=== PATIENT | male | born 1970 | race Hispanic/Latino ===

== ENCOUNTER 2021-06-11 08:52 | Observation (INO) | payer OTHER ==
[~2021-06-11] VITALS: Ht 152.4 cm; Wt 82.1 kg
[2021-06-11 09:53] LABS: BASOPHILS % (AUTO) 0.3 % (0.0-5.0); EOSINOPHILS % (AUTO) 2.2 % (0.0-8.0); LYMPHOCYTES % (AUTO) 20.3 % (21.0-51.0); MEAN CORPUSCULAR HEMOGLOBIN 27.8 pg (27.0-33.0); MEAN CORPUSCULAR HGB CONC 32.6 g/dL (32.0-36.0); MEAN CORPUSCULAR VOLUME 85.4 fL (79-99); MONOCYTES % (AUTO) 5.2 % (3.0-13.0); NEUTROPHILS % (AUTO) 71.7 % (40.0-77.0); PLATELET COUNT (AUTO) 249 K/uL (130-400); RED BLOOD CELL COUNT(AUTO) 3.63 MIL/uL (4.50-6.20); RED CELL DISTRIBUTION WIDTH 13.4 % (11.0-15.5); WHITE BLOOD COUNT (AUTO) 6.9 K/uL (4.8-10.8)
[2021-06-11 10:17] LABS: ALBUMIN 2.1 g/dL (3.5-5.0); BILIRUBIN,TOTAL 0.2 mg/dL (0.2-1.0); CREATININE 4.1 mg/dL (0.5-1.5); MAGNESIUM 1.9 mg/dL (1.80-2.40); POTASSIUM 3.8 mmol/L (3.5-5.1)
[2021-06-11 10:18] LABS: APPEARANCE,URINE Cloudy (CLEAR); BILIRUBIN,URINE Negative (NEGATIVE); COLOR,URINE Yellow (YELLOW); GLUCOSE, URINE (UA) 250 mg/dL (NEGATIVE); KETONES,URINE Negative (NEGATIVE); LEUKOCYTE ESTERASE ,URINE Negative (NEGATIVE); NITRATE,URINE Negative (NEGATIVE); OCCULT BLOOD,URINE Small (NEGATIVE); PROTEIN,URINE >=1000 mg/dL (NEGATIVE); UROBILINOGEN,URINE 0.2 mg/dL (0.2-1.0)
[2021-06-11 10:26] LABS: BACTERIA,URINE Rare /HPF (None Seen); RBC,URINE 0-1 /HPF (0-1); SQUAMOUS EPITHELIAL CELL,UR Rare /HPF (0-2)
[2021-06-11 10:37] LABS: AMPHET/METH SCREEN,URINE NEGATIVE (NEGATIVE); B-TYPE NATRIURETIC PEPTIDE 866 pg/mL (0-100); BARBITURATE SCREEN, URINE NEGATIVE (NEGATIVE); BENZODIAZEPINES SCREEN,URINE NEGATIVE (NEGATIVE); CANNABINOID SCREEN,URINE NEGATIVE (NEGATIVE); COCAINE SCREEN,URINE NEGATIVE (NEGATIVE); OPIATE SCREEN,URINE NEGATIVE (NEGATIVE); PHENCYCLIDINE SCREEN,URINE NEGATIVE (NEGATIVE)
[2021-06-11] MEDS ORDERED: FUROSEMIDE 40MG VIAL IV SCH (11:00)
[2021-06-11] MEDS ORDERED: FUROSEMIDE 40MG VIAL ONE (11:26)
[2021-06-11] MEDS: NIFEDIPINE 10 MG CAP PO SCH ×2 (13:49→20:25)
[2021-06-11 16:28] LABS: RETICULOCYTE % (AUTO) 1.33 % (0.42-2.23)
[2021-06-11] MEDS ORDERED: LABETALOL HCL 200 MG TABLET PO SCH (16:30)
[2021-06-11] MEDS ORDERED: BUMETANIDE 2.5MG/10ML VIAL 80 ML IV SCH (16:30)
[2021-06-11] MEDS ORDERED: BUMETANIDE 2.5MG/10ML VIAL 40 ML IV SCH (16:30)
[2021-06-11 16:58] LABS: % IRON SATURATION 16.6 % (30-44)
[2021-06-11] MEDS: LABETALOL HCL 200 MG TABLET PO SCH (20:25)
[2021-06-11] MEDS ORDERED: FAMOTIDINE 20MG TAB PO SCH (21:00)
[2021-06-11] MEDS ORDERED: LINA5TAB PO (22:29)
[2021-06-11] MEDS ORDERED: METO-408 PO (22:29)
[2021-06-11] MEDS ORDERED: TAMS-1 PO (22:29)
[2021-06-11 22:50] VITALS: BP 152/84
[2021-06-11] MEDS ORDERED: BUMETANIDE 1MG/4ML VIAL ONE (22:53)
[2021-06-11] MEDS ORDERED: HYDROMORPHONE 0.5 MG SYG (0.5MG/0.5ML) IVP ONE (23:00)
[2021-06-11] MEDS ORDERED: ACETAMINOPHEN 325 MG TAB ONE (23:10)
[2021-06-12] MEDS ORDERED: ACETAMINOPHEN 325 MG TAB PO PRN (00:30)
[2021-06-12 03:57] LABS: HEMATOCRIT 27.6 % (42-54); MEAN CORPUSCULAR HGB CONC 32.2 g/dL (32.0-36.0); MEAN CORPUSCULAR VOLUME 83.6 fL (79-99); RED BLOOD CELL COUNT(AUTO) 3.3 MIL/uL (4.50-6.20); RED CELL DISTRIBUTION WIDTH 13.5 % (11.0-15.5); WHITE BLOOD COUNT (AUTO) 6.6 K/uL (4.8-10.8)
[2021-06-12 04:18] VITALS: BP 151/81
[2021-06-12 04:32] LABS: ALBUMIN 1.8 g/dL (3.5-5.0); CREATININE 4.7 mg/dL (0.5-1.5); PHOSPHORUS 4.9 mg/dL (2.5-4.9); POTASSIUM 3.5 mmol/L (3.5-5.1)
[2021-06-12 07:30] VITALS: BP 140/71
[2021-06-12] MEDS ORDERED: ENOXAPARIN SODIUM 30 MG/0.3 ML SQ SCH (09:00)
[2021-06-12] MEDS ORDERED: NIFEDIPINE ER 30 MG TAB PO SCH (09:30)
[2021-06-12] MEDS: LABETALOL HCL 200 MG TABLET PO SCH (09:38)
[2021-06-12] MEDS ORDERED: LABE200T5 PO (09:40)
[2021-06-12] MEDS ORDERED: Folic Acid/Vitamin B Comp W-C PO (09:40)
[2021-06-12] MEDS ORDERED: NIFE-39 PO (09:40)
[2021-06-12] MEDS ORDERED: TAMS-1 PO (09:40)
[2021-06-12] MEDS ORDERED: IRON SUCROSE COMPLEX 400 MG in 0.9% NACL 250ML 250 ML IV SCH (10:00)
[2021-06-12] MEDS ORDERED: EPOETIN ALFA-EPBX (NON-ESRD) 10,000 UNIT/ML VIAL SQ SCH (10:00)
[2021-06-12] MEDS ORDERED: Vitamin B Complex/Vit C/Folic Acid PO SCH (10:00)
[2021-06-12] MEDS ORDERED: TAMSULOSIN HCL 0.4 MG CAP.ER.24H PO SCH (10:00)
[2021-06-12 11:35] VITALS: BP 143/85
[2021-06-12 15:25] VITALS: BP 94/60
[2021-06-12 15:32] VITALS: BP 125/66
[2021-06-13] MEDS ORDERED: NIFEDIPINE ER 30 MG TAB PO SCH (09:00)
[2021-06-13] MEDS ORDERED: Vitamin B Complex/Vit C/Folic Acid PO SCH (09:00)
[2021-06-13] MEDS ORDERED: TAMSULOSIN HCL 0.4 MG CAP.ER.24H PO SCH (21:00)
== END 2021-06-12 17:55 | disposition home or self-care (01) ==
LOC: EDH 08:52 → EDHIP 16:01 → 4AH 21:22
PROVIDERS: ADMIT Internal Medicine; ATTEND Internal Medicine
DX: E87.70 Fluid overload, unspecified (principal); I16.0 Hypertensive urgency; I13.2 Hypertensive heart and chronic kidney disease with heart failure and with stage 5 chronic kidney disease, or end stage renal disease; I50.31 Acute diastolic (congestive) heart failure; N18.6 End stage renal disease; E11.22 Type 2 diabetes mellitus with diabetic chronic kidney disease; D63.1 Anemia in chronic kidney disease; E11.319 Type 2 diabetes mellitus with unspecified diabetic retinopathy without macular edema; R06.09 Other forms of dyspnea; N17.9 Acute kidney failure, unspecified; K59.00 Constipation, unspecified; E43 Unspecified severe protein-calorie malnutrition; Z79.899 Other long term (current) drug therapy; Z98.890 Other specified postprocedural states
CPT/HCPCS: 36415 ×2; 71045; 80053; 80069; 80305; 81001; 82607; 82728; 82746; 82948 ×3; 83540; 83550; 83735; 83880 ×2; 84484; 85025; 85027; 85045; 93005; 96365; 96366 ×2; 96367; 96372; 96375; 99291; G0378 ×26; J1650; J1756; J1940; J3490 ×2; J7050; Q5106

== ENCOUNTER 2021-08-06 09:36 | Observation (INO) | payer OTHER ==
[~2021-08-06] VITALS: Ht 157.5 cm; Wt 80.9 kg
[~2021-08-06 09:36] MED LIST: Folic Acid/Vitamin B Comp W-C PO; LABE200T5 PO; NIFE-39 PO; TAMS-1 PO
[2021-08-06 10:11] LABS: BASOPHILS % (AUTO) 0.1 % (0.0-5.0); EOSINOPHILS % (AUTO) 3.3 % (0.0-8.0); HEMATOCRIT 28.9 % (42-54); LYMPHOCYTES % (AUTO) 18.6 % (21.0-51.0); MEAN CORPUSCULAR HEMOGLOBIN 27.6 pg (27.0-33.0); MEAN CORPUSCULAR HGB CONC 33.2 g/dL (32.0-36.0); MONOCYTES % (AUTO) 5.1 % (3.0-13.0); NEUTROPHILS % (AUTO) 72.6 % (40.0-77.0); PLATELET COUNT (AUTO) 263 K/uL (130-400); RED BLOOD CELL COUNT(AUTO) 3.48 MIL/uL (4.50-6.20); WHITE BLOOD COUNT (AUTO) 7.5 K/uL (4.8-10.8)
[2021-08-06 10:21] LABS: CREATININE 5.7 mg/dL (0.5-1.5); POTASSIUM 4.3 mmol/L (3.5-5.1)
[2021-08-06 10:29] LABS: BILIRUBIN,TOTAL 0.3 mg/dL (0.2-1.0); TOTAL PROTEIN, SERUM 7.1 g/dL (6.0-8.3)
[2021-08-06 10:47] LABS: APPEARANCE,URINE Clear (CLEAR); BILIRUBIN,URINE Negative (NEGATIVE); COLOR,URINE Yellow (YELLOW); GLUCOSE, URINE (UA) TRACE mg/dL (NEGATIVE); KETONES,URINE Negative (NEGATIVE); LEUKOCYTE ESTERASE ,URINE Negative (NEGATIVE); NITRATE,URINE Negative (NEGATIVE); OCCULT BLOOD,URINE Trace (NEGATIVE); PROTEIN,URINE >=1000 mg/dL (NEGATIVE); UROBILINOGEN,URINE 0.2 mg/dL (0.2-1.0)
[2021-08-06 10:58] LABS: BACTERIA,URINE Rare /HPF (None Seen); RBC,URINE 0-1 /HPF (0-1); SQUAMOUS EPITHELIAL CELL,UR Rare /HPF (0-2)
[2021-08-06] MEDS ORDERED: FUROSEMIDE 40MG VIAL IV ONE (11:00)
[2021-08-06] MEDS ORDERED: ACETAMINOPHEN 500 MG TABLET ONE (12:13)
[2021-08-06] MEDS ORDERED: ACETAMINOPHEN 500 MG TABLET PO SCH (12:30)
[2021-08-06] MEDS ORDERED: NIFE90TA65 PO (16:02)
[2021-08-06] MEDS ORDERED: METO2.5T2 PO (16:02)
[2021-08-06] MEDS ORDERED: BUME1TAB6 PO (16:02)
[2021-08-06] MEDS: LABETALOL HCL 200 MG TABLET PO SCH ×2 (16:30→21:36)
[2021-08-06] MEDS: NIFEDIPINE ER 30 MG TAB PO SCH (16:30)
[2021-08-06] MEDS: FUROSEMIDE 20MG VIAL IV SCH (17:21)
[2021-08-06] MEDS: HEPARIN 5,000 UNIT VIAL SQ SCH (17:21)
[2021-08-06 17:50] VITALS: BP 106/61
[2021-08-06 20:02] VITALS: BP 134/101
[2021-08-07 00:16] VITALS: BP 125/60
[2021-08-07 04:08] VITALS: BP 133/76
[2021-08-07 04:48] LABS: BASOPHILS % (AUTO) 0.2 % (0.0-5.0); EOSINOPHILS % (AUTO) 3.5 % (0.0-8.0); HEMATOCRIT 26.2 % (42-54); LYMPHOCYTES % (AUTO) 23.2 % (21.0-51.0); MEAN CORPUSCULAR HEMOGLOBIN 26.8 pg (27.0-33.0); MEAN CORPUSCULAR HGB CONC 32.1 g/dL (32.0-36.0); MEAN CORPUSCULAR VOLUME 83.4 fL (79-99); MONOCYTES % (AUTO) 6.8 % (3.0-13.0); NEUTROPHILS % (AUTO) 65.8 % (40.0-77.0); PLATELET COUNT (AUTO) 235 K/uL (130-400); RED BLOOD CELL COUNT(AUTO) 3.14 MIL/uL (4.50-6.20); RED CELL DISTRIBUTION WIDTH 13.2 % (11.0-15.5); WHITE BLOOD COUNT (AUTO) 6.3 K/uL (4.8-10.8)
[2021-08-07] MEDS: FUROSEMIDE 20MG VIAL IV SCH (04:58)
[2021-08-07] MEDS: HEPARIN 5,000 UNIT VIAL SQ SCH (05:10)
[2021-08-07 05:12] LABS: ALBUMIN 2.7 g/dL (3.5-5.0); BILIRUBIN,TOTAL 0.2 mg/dL (0.2-1.0); MAGNESIUM 3.7 mg/dL (1.80-2.40); PHOSPHORUS 5.9 mg/dL (2.5-4.9); POTASSIUM 4.6 mmol/L (3.5-5.1); TOTAL PROTEIN, SERUM 6.3 g/dL (6.0-8.3)
[2021-08-07 05:26] LABS: B-TYPE NATRIURETIC PEPTIDE 110 pg/mL (0-100)
[2021-08-07 07:30] VITALS: BP 145/79
[2021-08-07] MEDS: NIFEDIPINE ER 30 MG TAB PO SCH (07:50)
[2021-08-07] MEDS ORDERED: METOLAZONE 2.5 MG TABLET PO SCH (09:00)
[2021-08-07] MEDS ORDERED: TAMSULOSIN HCL 0.4 MG CAP.ER.24H PO SCH (09:00)
[2021-08-07] MEDS ORDERED: PANTOPRAZOLE 40 MG/VIAL IVP SCH (09:00)
[2021-08-07] MEDS ORDERED: Vitamin B Complex/Vit C/Folic Acid PO SCH (09:00)
[2021-08-07] MEDS ORDERED: BUMETANIDE 1 MG TAB PO SCH (09:00)
[2021-08-07 11:00] VITALS: BP 158/89
[2021-08-07] MEDS: LABETALOL HCL 200 MG TABLET PO SCH (11:49)
[2021-08-07 16:00] VITALS: BP 138/77
== END 2021-08-07 16:45 | disposition home or self-care (01) ==
LOC: EDH 09:36 → UNDOADMOB 15:50 → 3CH 15:50 → EDHIP 15:50
PROVIDERS: ADMIT Internal Medicine; ATTEND Internal Medicine
DX: E87.70 Fluid overload, unspecified (principal); I13.2 Hypertensive heart and chronic kidney disease with heart failure and with stage 5 chronic kidney disease, or end stage renal disease; I50.9 Heart failure, unspecified; N18.5 Chronic kidney disease, stage 5; D63.1 Anemia in chronic kidney disease; E11.22 Type 2 diabetes mellitus with diabetic chronic kidney disease; D72.810 Lymphocytopenia; E83.51 Hypocalcemia; H54.7 Unspecified visual loss; N17.9 Acute kidney failure, unspecified; N40.0 Benign prostatic hyperplasia without lower urinary tract symptoms; R60.1 Generalized edema; E88.09 Other disorders of plasma-protein metabolism, not elsewhere classified; Z79.899 Other long term (current) drug therapy; Z98.890 Other specified postprocedural states
CPT/HCPCS: 36415 ×2; 71045 ×2; 80053 ×2; 81001; 82948; 83735; 83880 ×2; 84100; 84484; 85025 ×2; 93005; 96372 ×2; 96374; 96375; 96376 ×2; 99285; C9113; G0378 ×25; J1644 ×2; J1940 ×3

== ENCOUNTER → 2021-09-03 | Outpatient (CLI) | payer OTHER ==
[~2021-09-03] MED LIST changes: +BUME1TAB6 PO; -Folic Acid/Vitamin B Comp W-C PO; -LABE200T5 PO; +METO2.5T2 PO; -NIFE-39 PO; +NIFE90TA65 PO; -TAMS-1 PO
== END | disposition home or self-care (01) ==
LOC: RAH 13:14
PROVIDERS: ATTEND Student in an Organized Health Care Education/Training Program
DX: N18.6 End stage renal disease (principal)
CPT/HCPCS: 93970

== ENCOUNTER → 2021-09-25 | Outpatient (CLI) | payer OTHER | END | disposition home or self-care (01) | LOC: SHCH 12:18 | PROVIDERS: ATTEND Internal Medicine Cardiovascular Disease | DX: I31.3 Pericardial effusion (noninflammatory) (principal); I35.8 Other nonrheumatic aortic valve disorders; I13.11 Hypertensive heart and chronic kidney disease without heart failure, with stage 5 chronic kidney disease, or end stage renal disease; E11.22 Type 2 diabetes mellitus with diabetic chronic kidney disease; N18.6 End stage renal disease | CPT/HCPCS: 93306 ==

== ENCOUNTER → 2021-09-28 | Outpatient (CLI) | payer OTHER ==
[~2021-09-28] MED LIST changes: +FERS325 PO; +ISOS30TA92 PO; +REGADENOSON 0.4 MG/5 ML PF SYG IVP SCH; +TAMS-1 PO
== END | disposition home or self-care (01) ==
LOC: SHCH 08:31
PROVIDERS: ATTEND Internal Medicine Cardiovascular Disease
DX: I20.9 Angina pectoris, unspecified (principal); R06.09 Other forms of dyspnea; I10 Essential (primary) hypertension; E78.5 Hyperlipidemia, unspecified
CPT/HCPCS: 78452; 96374; 93017; J2785; A9500 ×2

== ENCOUNTER 2021-10-05 16:53 | Inpatient (IN) | payer OTHER ==
[~2021-10-05] VITALS: Ht 152.4 cm; Wt 72.3 kg
[~2021-10-05 16:53] MED LIST changes: -FERS325 PO; -ISOS30TA92 PO; -REGADENOSON 0.4 MG/5 ML PF SYG IVP SCH; -TAMS-1 PO
[2021-10-05 17:20] LABS: BASOPHILS % (AUTO) 0.2 % (0.0-5.0); EOSINOPHILS % (AUTO) 2.4 % (0.0-8.0); HEMATOCRIT 23.1 % (42-54); LYMPHOCYTES % (AUTO) 16.1 % (21.0-51.0); MEAN CORPUSCULAR HEMOGLOBIN 28.5 pg (27.0-33.0); MEAN CORPUSCULAR HGB CONC 35.1 g/dL (32.0-36.0); MEAN CORPUSCULAR VOLUME 81.3 fL (79-99); MONOCYTES % (AUTO) 6.9 % (3.0-13.0); PLATELET COUNT (AUTO) 270 K/uL (130-400); RED BLOOD CELL COUNT(AUTO) 2.84 MIL/uL (4.50-6.20); RED CELL DISTRIBUTION WIDTH 13.4 % (11.0-15.5); WHITE BLOOD COUNT (AUTO) 9.8 K/uL (4.8-10.8)
[2021-10-05 17:30] LABS: CREATININE 7.7 mg/dL (0.5-1.5); POTASSIUM 3.8 mmol/L (3.5-5.1)
[2021-10-05 17:35] LABS: ALBUMIN 3.4 g/dL (3.5-5.0); TOTAL PROTEIN, SERUM 7.7 g/dL (6.0-8.3)
[2021-10-05] MEDS ORDERED: MORPHINE 4 MG SYG IVP ONE (18:00)
[2021-10-05] MEDS ORDERED: ONDANSETRON 4MG INJ IVP ONE (18:00)
[2021-10-05 19:22] LABS: APPEARANCE,URINE Cloudy (CLEAR); BILIRUBIN,URINE Negative (NEGATIVE); COLOR,URINE Yellow (YELLOW); GLUCOSE, URINE (UA) Negative (NEGATIVE); KETONES,URINE Negative (NEGATIVE); LEUKOCYTE ESTERASE ,URINE Trace (NEGATIVE); NITRATE,URINE Negative (NEGATIVE); OCCULT BLOOD,URINE Negative (NEGATIVE); PROTEIN,URINE 300 mg/dL (NEGATIVE); UROBILINOGEN,URINE 0.2 mg/dL (0.2-1.0)
[2021-10-05 19:29] LABS: BACTERIA,URINE Few /HPF (None Seen); RBC,URINE 0-1 /HPF (0-1)
[2021-10-05 19:30] LABS: SQUAMOUS EPITHELIAL CELL,UR Rare /HPF (0-2)
[2021-10-05] MEDS ORDERED: METRONIDAZOLE 500 MG TABLET PO SCH (20:00)
[2021-10-05] MEDS ORDERED: LACTULOSE 20 GM/30 ML UDCUP PO PRN (20:30)
[2021-10-05] MEDS ORDERED: DOCUSATE SODIUM 100 MG CAP PO PRN (20:30)
[2021-10-05] MEDS ORDERED: PHARMACY COMMUNICATION MISC SCH (20:30)
[2021-10-05] MEDS ORDERED: MORPHINE 2 MG SYG IVP PRN (20:30)
[2021-10-05] MEDS ORDERED: CLONIDINE HCL 0.1 MG TABLET PO PRN (20:30)
[2021-10-05] MEDS ORDERED: ACETAMINOPHEN 650 MG SUPPOSITORY RC PRN (20:30)
[2021-10-05] MEDS ORDERED: TEMAZEPAM 15 MG CAPSULE PO PRN (20:30)
[2021-10-05] MEDS ORDERED: LABETALOL 20MG SYG IV PRN (20:30)
[2021-10-05] MEDS ORDERED: HYDRALAZINE 20MG/ML VIAL IV PRN (20:30)
[2021-10-05] MEDS ORDERED: ONDANSETRON 4MG INJ IVP PRN (20:30)
[2021-10-05 22:31] VITALS: BP 151/83
[2021-10-06] MEDS: ACETAMINOPHEN 325 MG TAB PO PRN ×2 (00:54→22:56)
[2021-10-06] MEDS ORDERED: FERS325 PO (03:10)
[2021-10-06] MEDS ORDERED: TAMS-1 PO (03:10)
[2021-10-06] MEDS ORDERED: ISOS30TA92 PO (03:10)
[2021-10-06] MEDS ORDERED: LEVETIRACETAM 500 MG TABLET PO ONE (03:40)
[2021-10-06 04:16] VITALS: BP 146/83
[2021-10-06 04:48] LABS: BASOPHILS % (AUTO) 0.3 % (0.0-5.0); EOSINOPHILS % (AUTO) 2.9 % (0.0-8.0); HEMATOCRIT 22.4 % (42-54); MEAN CORPUSCULAR HEMOGLOBIN 27.8 pg (27.0-33.0); MEAN CORPUSCULAR HGB CONC 33.9 g/dL (32.0-36.0); MEAN CORPUSCULAR VOLUME 82.1 fL (79-99); MONOCYTES % (AUTO) 6.8 % (3.0-13.0); NEUTROPHILS % (AUTO) 73.6 % (40.0-77.0); PLATELET COUNT (AUTO) 242 K/uL (130-400); RED BLOOD CELL COUNT(AUTO) 2.73 MIL/uL (4.50-6.20); RED CELL DISTRIBUTION WIDTH 13.4 % (11.0-15.5); WHITE BLOOD COUNT (AUTO) 7.2 K/uL (4.8-10.8)
[2021-10-06 05:11] LABS: CREATININE 7.2 mg/dL (0.5-1.5); POTASSIUM 4.1 mmol/L (3.5-5.1)
[2021-10-06 08:00] VITALS: BP 163/86
[2021-10-06] MEDS: METOLAZONE 2.5 MG TABLET PO SCH (08:38)
[2021-10-06] MEDS: FERROUS SULFATE 325 MG TABLET.DR PO SCH (08:38)
[2021-10-06] MEDS: BUMETANIDE 1 MG TAB PO SCH (08:38)
[2021-10-06] MEDS: TAMSULOSIN HCL 0.4 MG CAP.ER.24H PO SCH (08:39)
[2021-10-06] MEDS: NIFEDIPINE ER 30 MG TAB PO SCH (08:39)
[2021-10-06] MEDS: ISOSORBIDE MONO 30MG SR TAB PO SCH (08:40)
[2021-10-06] MEDS: LEVOFLOXACIN 500 MG TABLET PO SCH (08:40)
[2021-10-06 12:00] VITALS: BP 163/87
[2021-10-06] MEDS: TRAMADOL HCL 50 MG TABLET PO PRN (15:53)
[2021-10-06 16:00] VITALS: BP 145/73
[2021-10-06 20:17] VITALS: BP 120/66
[2021-10-06 23:32] VITALS: BP 137/70
[2021-10-07] MEDS: LEVOFLOXACIN 500 MG TABLET PO SCH ×2 (01:31→21:34)
[2021-10-07 04:20] VITALS: BP 131/72
[2021-10-07 05:28] LABS: BASOPHILS % (AUTO) 0.3 % (0.0-5.0); EOSINOPHILS % (AUTO) 3.2 % (0.0-8.0); HEMATOCRIT 22.9 % (42-54); LYMPHOCYTES % (AUTO) 22.2 % (21.0-51.0); MEAN CORPUSCULAR HEMOGLOBIN 27.9 pg (27.0-33.0); MEAN CORPUSCULAR HGB CONC 34.1 g/dL (32.0-36.0); MEAN CORPUSCULAR VOLUME 81.8 fL (79-99); MONOCYTES % (AUTO) 5.6 % (3.0-13.0); NEUTROPHILS % (AUTO) 68.4 % (40.0-77.0); PLATELET COUNT (AUTO) 271 K/uL (130-400); RED CELL DISTRIBUTION WIDTH 13.2 % (11.0-15.5); WHITE BLOOD COUNT (AUTO) 6.2 K/uL (4.8-10.8)
[2021-10-07 05:43] LABS: ALBUMIN 3.1 g/dL (3.5-5.0); CREATININE 7.2 mg/dL (0.5-1.5); TOTAL PROTEIN, SERUM 7.3 g/dL (6.0-8.3)
[2021-10-07 07:57] VITALS: BP 152/78
[2021-10-07] MEDS: METOLAZONE 2.5 MG TABLET PO SCH (08:26)
[2021-10-07] MEDS: FERROUS SULFATE 325 MG TABLET.DR PO SCH (08:26)
[2021-10-07] MEDS: BUMETANIDE 1 MG TAB PO SCH (08:26)
[2021-10-07] MEDS: TAMSULOSIN HCL 0.4 MG CAP.ER.24H PO SCH (08:26)
[2021-10-07] MEDS: NIFEDIPINE ER 30 MG TAB PO SCH (08:26)
[2021-10-07] MEDS: ISOSORBIDE MONO 30MG SR TAB PO SCH (08:27)
[2021-10-07 11:00] VITALS: BP 155/82
[2021-10-07] MEDS: TRAMADOL HCL 50 MG TABLET PO PRN (13:23)
[2021-10-07 16:00] VITALS: BP 151/81
[2021-10-07 20:05] VITALS: BP 135/74
[2021-10-07 23:35] VITALS: BP 133/75
[2021-10-08] VITALS (11 sets, daily range): BP systolic 119–146; BP diastolic 62–82
[2021-10-08 05:00] LABS: EOSINOPHILS % (AUTO) 3.8 % (0.0-8.0); LYMPHOCYTES % (AUTO) 19.4 % (21.0-51.0); MEAN CORPUSCULAR HGB CONC 34.1 g/dL (32.0-36.0); MEAN CORPUSCULAR VOLUME 82.1 fL (79-99); MONOCYTES % (AUTO) 6.3 % (3.0-13.0); NEUTROPHILS % (AUTO) 70.1 % (40.0-77.0); PLATELET COUNT (AUTO) 251 K/uL (130-400); RED BLOOD CELL COUNT(AUTO) 2.68 MIL/uL (4.50-6.20); RED CELL DISTRIBUTION WIDTH 13.1 % (11.0-15.5)
[2021-10-08 05:10] LABS: INR 1.06 (0.85-1.15); PROTHROMBIN TIME 11.5 SEC (9.6-11.6)
[2021-10-08 05:21] LABS: ALBUMIN 2.9 g/dL (3.5-5.0); CREATININE 7.4 mg/dL (0.5-1.5); POTASSIUM 4.3 mmol/L (3.5-5.1)
[2021-10-08] MEDS: BUMETANIDE 1 MG TAB PO SCH (09:00)
[2021-10-08] MEDS: TAMSULOSIN HCL 0.4 MG CAP.ER.24H PO SCH (09:00)
[2021-10-08] MEDS: ISOSORBIDE MONO 30MG SR TAB PO SCH (09:00)
[2021-10-08] MEDS: POLYETHYLENE GLYCOL 3350 17 GM POWD.PACK PO SCH (09:00)
[2021-10-08] MEDS: FERROUS SULFATE 325 MG TABLET.DR PO SCH (09:00)
[2021-10-08] MEDS: METOLAZONE 2.5 MG TABLET PO SCH (09:00)
[2021-10-08] MEDS: NIFEDIPINE ER 30 MG TAB PO SCH (09:50)
[2021-10-08 12:24] LABS: ALBUMIN 3.1 g/dL (3.5-5.0)
[2021-10-08 13:21] LABS: % IRON SATURATION 25.9 % (30-44)
[2021-10-08] MEDS ORDERED: LIDOCAINE HCL 1% MDV 50ML VIAL ONE (14:56)
[2021-10-08] MEDS ORDERED: HEPARIN 1,000 UNIT VIAL ONE (14:56)
[2021-10-08 20:50] LABS: HEPATITIS B SURFACE ANTIGEN Non-Reactive (Nonreactive)
[2021-10-08] MEDS: TRAMADOL HCL 50 MG TABLET PO PRN (21:47)
[2021-10-09] VITALS (15 sets, daily range): BP systolic 123–159; BP diastolic 65–93
[2021-10-09] MEDS: LEVOFLOXACIN 500 MG TABLET PO SCH (01:23)
[2021-10-09 04:55] LABS: BASOPHILS % (AUTO) 0.2 % (0.0-5.0); EOSINOPHILS % (AUTO) 3.6 % (0.0-8.0); LYMPHOCYTES % (AUTO) 17.6 % (21.0-51.0); MEAN CORPUSCULAR HEMOGLOBIN 27.6 pg (27.0-33.0); MEAN CORPUSCULAR HGB CONC 33.5 g/dL (32.0-36.0); MEAN CORPUSCULAR VOLUME 82.4 fL (79-99); NEUTROPHILS % (AUTO) 72.3 % (40.0-77.0); PLATELET COUNT (AUTO) 256 K/uL (130-400); RED BLOOD CELL COUNT(AUTO) 2.79 MIL/uL (4.50-6.20); RED CELL DISTRIBUTION WIDTH 13.2 % (11.0-15.5); WHITE BLOOD COUNT (AUTO) 6.1 K/uL (4.8-10.8)
[2021-10-09 05:20] LABS: ALBUMIN 2.9 g/dL (3.5-5.0); CREATININE 7.6 mg/dL (0.5-1.5); POTASSIUM 4.2 mmol/L (3.5-5.1); TOTAL PROTEIN, SERUM 6.8 g/dL (6.0-8.3)
[2021-10-09] MEDS: NIFEDIPINE ER 30 MG TAB PO SCH (08:27)
[2021-10-09] MEDS: POLYETHYLENE GLYCOL 3350 17 GM POWD.PACK PO SCH (08:27)
[2021-10-09] MEDS: BUMETANIDE 1 MG TAB PO SCH (08:28)
[2021-10-09] MEDS: METOLAZONE 2.5 MG TABLET PO SCH (08:28)
[2021-10-09] MEDS: FERROUS SULFATE 325 MG TABLET.DR PO SCH (08:28)
[2021-10-09] MEDS: TAMSULOSIN HCL 0.4 MG CAP.ER.24H PO SCH (08:28)
[2021-10-09] MEDS: ISOSORBIDE MONO 30MG SR TAB PO SCH (08:29)
[2021-10-09] MEDS: HEPARIN 5,000 UNIT VIAL IRRIG PRN (13:15)
[2021-10-09] MEDS: ACETAMINOPHEN 325 MG TAB PO PRN (17:38)
[2021-10-10] VITALS (17 sets, daily range): BP systolic 115–160; BP diastolic 73–90
[2021-10-10] MEDS: LEVOFLOXACIN 500 MG TABLET PO SCH (01:03)
[2021-10-10 05:09] LABS: HEMATOCRIT 22.7 % (42-54); MEAN CORPUSCULAR HEMOGLOBIN 27.6 pg (27.0-33.0); MEAN CORPUSCULAR HGB CONC 33.9 g/dL (32.0-36.0); MEAN CORPUSCULAR VOLUME 81.4 fL (79-99); RED BLOOD CELL COUNT(AUTO) 2.79 MIL/uL (4.50-6.20)
[2021-10-10 05:27] LABS: CREATININE 6.5 mg/dL (0.5-1.5); POTASSIUM 4.2 mmol/L (3.5-5.1)
[2021-10-10] MEDS: ISOSORBIDE MONO 30MG SR TAB PO SCH (09:05)
[2021-10-10] MEDS: METOLAZONE 2.5 MG TABLET PO SCH (09:05)
[2021-10-10] MEDS: POLYETHYLENE GLYCOL 3350 17 GM POWD.PACK PO SCH (09:05)
[2021-10-10] MEDS: NIFEDIPINE ER 30 MG TAB PO SCH (09:05)
[2021-10-10] MEDS: BUMETANIDE 1 MG TAB PO SCH (09:05)
[2021-10-10] MEDS: TAMSULOSIN HCL 0.4 MG CAP.ER.24H PO SCH (09:06)
[2021-10-10] MEDS: FERROUS SULFATE 325 MG TABLET.DR PO SCH (09:06)
[2021-10-10] MEDS: HEPARIN 5,000 UNIT VIAL IRRIG PRN (18:04)
[2021-10-11] VITALS (40 sets, daily range): BP systolic 96–154; BP diastolic 53–91
[2021-10-11] MEDS: LEVOFLOXACIN 500 MG TABLET PO SCH (01:53)
[2021-10-11 05:10] LABS: HEMATOCRIT 23.7 % (42-54); MEAN CORPUSCULAR HEMOGLOBIN 28.2 pg (27.0-33.0); MEAN CORPUSCULAR HGB CONC 34.6 g/dL (32.0-36.0); MEAN CORPUSCULAR VOLUME 81.4 fL (79-99); RED BLOOD CELL COUNT(AUTO) 2.91 MIL/uL (4.50-6.20); WHITE BLOOD COUNT (AUTO) 5.8 K/uL (4.8-10.8)
[2021-10-11 05:16] LABS: POTASSIUM 3.5 mmol/L (3.5-5.1)
[2021-10-11 05:25] LABS: INR 1.1 (0.85-1.15); PROTHROMBIN TIME 11.9 SEC (9.6-11.6)
[2021-10-11] MEDS: FERROUS SULFATE 325 MG TABLET.DR PO SCH (08:50)
[2021-10-11] MEDS: METOLAZONE 2.5 MG TABLET PO SCH (08:50)
[2021-10-11] MEDS: NIFEDIPINE ER 30 MG TAB PO SCH (08:50)
[2021-10-11] MEDS: TAMSULOSIN HCL 0.4 MG CAP.ER.24H PO SCH (08:50)
[2021-10-11] MEDS: ISOSORBIDE MONO 30MG SR TAB PO SCH (08:50)
[2021-10-11] MEDS: POLYETHYLENE GLYCOL 3350 17 GM POWD.PACK PO SCH (08:51)
[2021-10-11] MEDS: HEPARIN 5,000 UNIT VIAL IRRIG PRN (11:37)
[2021-10-11] MEDS ORDERED: PROPOFOL 10 MG/ML 20ML VIAL IV ONE (14:20)
[2021-10-11] MEDS ORDERED: GLYCOPYRROLATE 1 MG/5 ML SYRINGE ONE (14:20)
[2021-10-11] MEDS ORDERED: ROCURONIUM 10MG/1ML SYR 10 MG/ML ML ONE (14:20)
[2021-10-11] MEDS ORDERED: FENTANYL CITRATE PF 50 MCG/1 ML 2ML VIAL ONE (14:21)
[2021-10-11 14:30] LABS: CREATININE 2.9 mg/dL (0.5-1.5); POTASSIUM 3.2 mmol/L (3.5-5.1)
[2021-10-11] MEDS ORDERED: 0.9% NACL 500ML IV.SOLN 500 ML IV ONE (14:32)
[2021-10-11 14:35] LABS: ALBUMIN 3.5 g/dL (3.5-5.0); TOTAL PROTEIN, SERUM 7.9 g/dL (6.0-8.3)
[2021-10-11] MEDS ORDERED: EPHEDRINE SULFATE 50 MG/ML AMPULE ONE (14:48)
[2021-10-11] MEDS ORDERED: LIDOCAINE HCL 400MG/20ML VIAL ONE (14:53)
[2021-10-11] MEDS ORDERED: ROPIVACAINE 0.5% 5MG/ML 30ML IJ ONE (14:53)
[2021-10-11] MEDS ORDERED: LIDOCAINE 1%-EPI 1:100,000 20 ML VIAL IJ ONE (14:54)
[2021-10-11] MEDS ORDERED: MIDAZOLAM HCL 1 MG/ML 2ML VIAL ONE (14:57)
[2021-10-11] MEDS ORDERED: PROPOFOL 1000 MG/100 ML 100 ML IV ONE (15:16)
[2021-10-11] MEDS ORDERED: PHENYLEPHRINE HCL 10 MG/ML 1ML VIAL IV ONE (15:29)
[2021-10-11] MEDS ORDERED: CEFAZOLIN SODIUM 2 GM VIAL IV ONE (15:41)
[2021-10-11] MEDS ORDERED: HEPARIN PF LOCK 500 UNIT/5ML IV ONE (15:41)
[2021-10-11] MEDS ORDERED: ACETAMINOPHEN 325 MG TAB PO PRN (16:00)
[2021-10-11] MEDS ORDERED: CEFAZOLIN SODIUM 1 GM VIAL ONE (16:00)
[2021-10-11] MEDS ORDERED: TRAMADOL HCL 50 MG TABLET PO PRN ×2 (16:00)
[2021-10-12] VITALS (14 sets, daily range): BP systolic 103–153; BP diastolic 55–89
[2021-10-12] MEDS: LEVOFLOXACIN 500 MG TABLET PO SCH (00:31)
[2021-10-12 05:18] LABS: HEMATOCRIT 26.1 % (42-54); MEAN CORPUSCULAR HEMOGLOBIN 27.8 pg (27.0-33.0); MEAN CORPUSCULAR HGB CONC 33.7 g/dL (32.0-36.0); MEAN CORPUSCULAR VOLUME 82.6 fL (79-99); RED BLOOD CELL COUNT(AUTO) 3.16 MIL/uL (4.50-6.20); WHITE BLOOD COUNT (AUTO) 9.1 K/uL (4.8-10.8)
[2021-10-12 05:27] LABS: CREATININE 4.9 mg/dL (0.5-1.5); POTASSIUM 3.9 mmol/L (3.5-5.1)
[2021-10-12] MEDS: POLYETHYLENE GLYCOL 3350 17 GM POWD.PACK PO SCH (08:56)
[2021-10-12] MEDS: FERROUS SULFATE 325 MG TABLET.DR PO SCH (08:56)
[2021-10-12] MEDS: NIFEDIPINE ER 30 MG TAB PO SCH (08:56)
[2021-10-12] MEDS: ISOSORBIDE MONO 30MG SR TAB PO SCH (08:56)
[2021-10-12] MEDS: TAMSULOSIN HCL 0.4 MG CAP.ER.24H PO SCH (08:56)
[2021-10-12] MEDS: METOLAZONE 2.5 MG TABLET PO SCH (10:46)
[2021-10-12] MEDS: HEPARIN 5,000 UNIT VIAL IRRIG PRN (12:56)
== END 2021-10-12 14:18 | disposition home or self-care (01) | DRG 264 ==
LOC: EDH 16:53 → EDHIP 20:12 → OBSVTOIN 20:12 → INTOOBSV 20:12 → 3AH 22:15
PROVIDERS: ADMIT Internal Medicine; ATTEND Internal Medicine
PROC: 0JH63XZ Insertion of Tunneled Vascular Access Device into Chest Subcutaneous Tissue and Fascia, Percutaneous Approach (ICD-10-PCS; 2021-10-08)
PROC: 02H633Z Insertion of Infusion Device into Right Atrium, Percutaneous Approach (ICD-10-PCS; 2021-10-08)
PROC: B548ZZA Ultrasonography of Superior Vena Cava, Guidance (ICD-10-PCS; 2021-10-08)
PROC: B5181ZA Fluoroscopy of Superior Vena Cava using Low Osmolar Contrast, Guidance (ICD-10-PCS; 2021-10-08)
PROC: 5A1D70Z Performance of Urinary Filtration, Intermittent, Less than 6 Hours Per Day (ICD-10-PCS; 2021-10-09)
PROC: 5A1D70Z Performance of Urinary Filtration, Intermittent, Less than 6 Hours Per Day (ICD-10-PCS; 2021-10-10)
PROC: 5A1D70Z Performance of Urinary Filtration, Intermittent, Less than 6 Hours Per Day (ICD-10-PCS; 2021-10-11)
PROC: 03180ZD Bypass Left Brachial Artery to Upper Arm Vein, Open Approach (ICD-10-PCS; principal; 2021-10-11 15:41)
PROC: 5A1D70Z Performance of Urinary Filtration, Intermittent, Less than 6 Hours Per Day (ICD-10-PCS; 2021-10-12)
DX: I13.2 Hypertensive heart and chronic kidney disease with heart failure and with stage 5 chronic kidney disease, or end stage renal disease (principal); N18.6 End stage renal disease; K57.92 Diverticulitis of intestine, part unspecified, without perforation or abscess without bleeding; N39.0 Urinary tract infection, site not specified; I31.3 Pericardial effusion (noninflammatory); N45.1 Epididymitis; I50.30 Unspecified diastolic (congestive) heart failure; D63.1 Anemia in chronic kidney disease; N40.0 Benign prostatic hyperplasia without lower urinary tract symptoms; E11.22 Type 2 diabetes mellitus with diabetic chronic kidney disease; E11.319 Type 2 diabetes mellitus with unspecified diabetic retinopathy without macular edema; E11.65 Type 2 diabetes mellitus with hyperglycemia; E66.9 Obesity, unspecified; E88.09 Other disorders of plasma-protein metabolism, not elsewhere classified; Z20.822 Contact with and (suspected) exposure to COVID-19; Z99.2 Dependence on renal dialysis; H54.7 Unspecified visual loss; Z83.3 Family history of diabetes mellitus; E11.21 Type 2 diabetes mellitus with diabetic nephropathy; E66.01 Morbid (severe) obesity due to excess calories; Z68.31 Body mass index [BMI] 31.0-31.9, adult
CPT/HCPCS: 36415; 36558; 71045; 74176; 76870; 77001; 80048; 80053; 80061; 81001; 82040; 82728; 82948; 83540; 83550; 83880; 84145; 84520; 85025; 85027; 85610; 85730; 86701; 86704; 86706; 86850; 86900; 86901; 87340; 87390; 87635; 90935; 93005; 93971; C1750; G0378; J0690; J1642; J1644; J2250; J2270; J2370; J2405; J2704; J2795; J3010; J3490; J7030; J7040

== ENCOUNTER 2022-03-27 11:36 | Emergency (ER) | payer OTHER ==
[~2022-03-27] VITALS: Ht 154.9 cm; Wt 78.0 kg
[~2022-03-27 11:36] MED LIST changes: -BUME1TAB6 PO; +FERS325 PO; +ISOS30TA92 PO; -METO2.5T2 PO; +TAMS-1 PO
[2022-03-27 14:55] VITALS: BP 147/86
== END 2022-03-27 15:02 | disposition home or self-care (01) ==
LOC: EDH 11:36
DX: S09.90XA Unspecified injury of head, initial encounter (principal); I12.9 Hypertensive chronic kidney disease with stage 1 through stage 4 chronic kidney disease, or unspecified chronic kidney disease; E11.22 Type 2 diabetes mellitus with diabetic chronic kidney disease; N18.9 Chronic kidney disease, unspecified; Z98.890 Other specified postprocedural states; Z79.899 Other long term (current) drug therapy; W18.09XA Striking against other object with subsequent fall, initial encounter; Y93.89 Activity, other specified; Y92.89 Other specified places as the place of occurrence of the external cause; Y99.8 Other external cause status
CPT/HCPCS: 70450; 72125

== ENCOUNTER 2022-06-05 08:53 | Emergency (ER) | payer OTHER ==
[~2022-06-05] VITALS: Ht 154.9 cm; Wt 81.6 kg
[2022-06-05 09:27] LABS: BASOPHILS % (AUTO) 0.1 % (0.0-5.0); EOSINOPHILS % (AUTO) 2.7 % (0.0-8.0); HEMATOCRIT 30.9 % (42-54); LYMPHOCYTES % (AUTO) 18.3 % (21.0-51.0); MEAN CORPUSCULAR HGB CONC 34.3 g/dL (32.0-36.0); MEAN CORPUSCULAR VOLUME 90.4 fL (79-99); MONOCYTES % (AUTO) 6.6 % (3.0-13.0); NEUTROPHILS % (AUTO) 71.9 % (40.0-77.0); PLATELET COUNT (AUTO) 202 K/uL (130-400); RED BLOOD CELL COUNT(AUTO) 3.42 MIL/uL (4.50-6.20); RED CELL DISTRIBUTION WIDTH 12.6 % (11.0-15.5); WHITE BLOOD COUNT (AUTO) 7.1 K/uL (4.8-10.8)
[2022-06-05] MEDS ORDERED: KETAMINE HCL 100 MG/ML 5ML VIAL IJ ONE (09:35)
[2022-06-05] MEDS ORDERED: SOLU-MEDROL 125MG VIAL ONE (09:37)
[2022-06-05 09:40] LABS: ALBUMIN 3.2 g/dL (3.5-5.0); CREATININE 5.4 mg/dL (0.5-1.5); POTASSIUM 4.2 mmol/L (3.5-5.1); TOTAL PROTEIN, SERUM 6.7 g/dL (6.0-8.3)
[2022-06-05 10:00] LABS: B-TYPE NATRIURETIC PEPTIDE 714 pg/mL (0-100)
[2022-06-05] MEDS ORDERED: CLONIDINE HCL 0.1 MG TABLET PO STA (10:13)
[2022-06-05 11:19] VITALS: BP 201/93
== END 2022-06-05 12:04 | disposition home or self-care (01) ==
LOC: EDH 08:53
DX: E13.22 Other specified diabetes mellitus with diabetic chronic kidney disease (principal); I12.0 Hypertensive chronic kidney disease with stage 5 chronic kidney disease or end stage renal disease; N18.6 End stage renal disease; Z99.2 Dependence on renal dialysis; Z79.899 Other long term (current) drug therapy
CPT/HCPCS: 99285; 71045; 84484; 80053; 83880; 85025; 36415; 93005; J3490; J2930

== ENCOUNTER 2022-08-08 17:33 | Emergency (ER) | payer OTHER ==
[~2022-08-08] VITALS: Ht 154.9 cm; Wt 80.7 kg
[2022-08-08] MEDS ORDERED: ACETAMINOPHEN WITH CODEINE 1 TAB TAB PO ONE (18:30)
[2022-08-08 18:39] LABS: BASOPHILS % (AUTO) 0.3 % (0.0-5.0); EOSINOPHILS % (AUTO) 2.6 % (0.0-8.0); LYMPHOCYTES % (AUTO) 14.9 % (21.0-51.0); MEAN CORPUSCULAR HEMOGLOBIN 31.2 pg (27.0-33.0); MEAN CORPUSCULAR VOLUME 94.6 fL (79-99); MONOCYTES % (AUTO) 7.2 % (3.0-13.0); NEUTROPHILS % (AUTO) 74.6 % (40.0-77.0); PLATELET COUNT (AUTO) 198 K/uL (130-400); RED BLOOD CELL COUNT(AUTO) 3.49 MIL/uL (4.50-6.20); RED CELL DISTRIBUTION WIDTH 13.2 % (11.0-15.5); WHITE BLOOD COUNT (AUTO) 7.8 K/uL (4.8-10.8)
[2022-08-08 18:46] LABS: APPEARANCE,URINE CLOUDY (CLEAR); BILIRUBIN,URINE NEGATIVE (NEGATIVE); COLOR,URINE YELLOW (YELLOW); GLUCOSE, URINE (UA) 70 mg/dL (NEGATIVE); KETONES,URINE NEGATIVE (NEGATIVE); LEUKOCYTE ESTERASE ,URINE NEGATIVE Leu/uL (NEGATIVE); NITRATE,URINE NEGATIVE (NEGATIVE); OCCULT BLOOD,URINE LARGE (NEGATIVE); PROTEIN,URINE 600 mg/dL (NEGATIVE); UROBILINOGEN,URINE 0.2 mg/dL (0.2-1.0)
[2022-08-08 18:49] LABS: BACTERIA,URINE RARE /HPF (None Seen); RBC,URINE 51-100 /HPF (0-1); SQUAMOUS EPITHELIAL CELL,UR RARE /HPF (0-2)
[2022-08-08 18:50] LABS: CREATININE 6.5 mg/dL (0.5-1.5); POTASSIUM 4.3 mmol/L (3.5-5.1)
[2022-08-08 18:54] LABS: ALBUMIN 3.8 g/dL (3.5-5.0); TOTAL PROTEIN, SERUM 7.3 g/dL (6.0-8.3)
[2022-08-08] MEDS ORDERED: MORPHINE 4 MG SYG ONE (20:22)
[2022-08-08] MEDS ORDERED: MORPHINE 4 MG SYG IM ONE (20:30)
[2022-08-08] MEDS ORDERED: TAMS-1 PO (21:39)
[2022-08-08] MEDS ORDERED: ACET-2459 PO (21:43)
[2022-08-08 22:23] VITALS: BP 125/75
[2022-08-08] MEDS ORDERED: TAMSULOSIN HCL 0.4 MG CAP.ER.24H PO ONE (22:30)
== END 2022-08-08 22:28 | disposition home or self-care (01) ==
LOC: EDH 17:33
DX: N13.30 Unspecified hydronephrosis (principal); N13.4 Hydroureter; R31.9 Hematuria, unspecified; E11.22 Type 2 diabetes mellitus with diabetic chronic kidney disease; I12.9 Hypertensive chronic kidney disease with stage 1 through stage 4 chronic kidney disease, or unspecified chronic kidney disease; N18.9 Chronic kidney disease, unspecified; Z79.899 Other long term (current) drug therapy
CPT/HCPCS: 99285; 74176; 80053; 83690; 85025; 87088; 81001; 36415; 76870; 96372; J2270

== ENCOUNTER 2022-08-19 13:19 | Emergency (ER) | payer OTHER ==
[~2022-08-19] VITALS: Ht 154.9 cm; Wt 77.1 kg
[~2022-08-19 13:19] MED LIST changes: +ACET-2459 PO
[2022-08-19] MEDS ORDERED: ACETAMINOPHEN 500 MG TABLET PO ONE (14:00)
[2022-08-19] MEDS ORDERED: CEPH500B PO (15:25)
[2022-08-19] MEDS ORDERED: CEFTRIAXONE 1G VIAL IM ONE (15:30)
[2022-08-19] MEDS ORDERED: LIDOCAINE HCL 1% 20 ML VIAL ONE (16:21)
[2022-08-19 16:29] LABS: APPEARANCE,URINE CLOUDY (CLEAR); BILIRUBIN,URINE NEGATIVE (NEGATIVE); COLOR,URINE YELLOW (YELLOW); GLUCOSE, URINE (UA) 50 mg/dL (NEGATIVE); KETONES,URINE NEGATIVE (NEGATIVE); LEUKOCYTE ESTERASE ,URINE NEGATIVE Leu/uL (NEGATIVE); NITRATE,URINE NEGATIVE (NEGATIVE); OCCULT BLOOD,URINE NEGATIVE (NEGATIVE); PROTEIN,URINE 300 mg/dL (NEGATIVE); UROBILINOGEN,URINE 0.2 mg/dL (0.2-1.0)
[2022-08-19] MEDS ORDERED: LIDOCAINE HCL 1% 20 ML VIAL INJ SCH (16:30)
[2022-08-19 16:42] LABS: BACTERIA,URINE RARE /HPF (None Seen); SQUAMOUS EPITHELIAL CELL,UR RARE /HPF (0-2); YEAST,URINE BUDDING MOD /HPF (None Seen)
[2022-08-19 17:00] VITALS: BP 157/60
== END 2022-08-19 17:21 | disposition home or self-care (01) ==
LOC: EDH 13:19
DX: N39.0 Urinary tract infection, site not specified (principal); I12.9 Hypertensive chronic kidney disease with stage 1 through stage 4 chronic kidney disease, or unspecified chronic kidney disease; E11.22 Type 2 diabetes mellitus with diabetic chronic kidney disease; N18.9 Chronic kidney disease, unspecified; Z20.822 Contact with and (suspected) exposure to COVID-19; Z79.899 Other long term (current) drug therapy; Z98.890 Other specified postprocedural states
CPT/HCPCS: 99284; 71045; 87635; 87088; 87880; 87804 ×2; 81001; 96372; C9803; J0696

== ENCOUNTER 2022-12-28 09:57 | Observation (INO) | payer OTHER, MEDICARE ==
[~2022-12-28] VITALS: Ht 157.5 cm; Wt 82.3 kg
[~2022-12-28 09:57] MED LIST changes: +CEPH500B PO; -FERS325 PO
[2022-12-28 11:01] LABS: BASOPHILS # (AUTO) 0.01 K/uL (0.00-0.20); BASOPHILS % (AUTO) 0.2 % (0.0-5.0); EOSINOPHILS # (AUTO) 0.12 K/uL (0.00-0.70); EOSINOPHILS % (AUTO) 2.3 % (0.0-8.0); HEMATOCRIT 40.5 % (42-54); IMMATURE GRANULOCYTE ABSOLUTE 0.02 K/uL (0-1); LYMPHOCYTES # (AUTO) 0.9 K/uL (1.0-4.8); LYMPHOCYTES % (AUTO) 16.4 % (21.0-51.0); MEAN CORPUSCULAR HEMOGLOBIN 31.7 pg (27.0-33.0); MEAN CORPUSCULAR HGB CONC 32.8 g/dL (32.0-36.0); MEAN CORPUSCULAR VOLUME 96.4 fL (79-99); MONOCYTES # (AUTO) 0.3 K/uL (0.1-1.0); MONOCYTES % (AUTO) 5.6 % (3.0-13.0); NEUTROPHILS # (AUTO) 3.9 K/uL (1.8-7.7); NEUTROPHILS % (AUTO) 75.1 % (40.0-77.0); PLATELET COUNT (AUTO) 164 K/uL (130-400); WHITE BLOOD COUNT (AUTO) 5.2 K/uL (4.8-10.8)
[2022-12-28 11:10] LABS: CREATININE 5.1 mg/dL (0.5-1.5); POTASSIUM 4.5 mmol/L (3.5-5.1)
[2022-12-28 11:20] LABS: ALBUMIN 3.9 g/dL (3.5-5.0); BILIRUBIN,TOTAL 0.5 mg/dL (0.2-1.0); TOTAL PROTEIN, SERUM 7.7 g/dL (6.0-8.3)
[2022-12-28 11:31] LABS: B-TYPE NATRIURETIC PEPTIDE 295 pg/mL (0-100)
[2022-12-28] MEDS ORDERED: LIDOCAINE HCL 400MG/20ML VIAL ONE (16:12)
[2022-12-28] MEDS ORDERED: MIDAZOLAM HCL 1 MG/ML 2ML VIAL ONE (16:13)
[2022-12-28] MEDS ORDERED: FENTANYL CITRATE PF 50 MCG/1 ML 2ML VIAL ONE (16:13)
[2022-12-28] MEDS ORDERED: HYDRALAZINE 20MG/ML VIAL IV PRN (16:30)
[2022-12-28] MEDS ORDERED: LABETALOL 20MG SYG IV PRN (16:30)
[2022-12-28] MEDS ORDERED: ACETAMINOPHEN 325 MG TAB PO PRN (16:30)
[2022-12-28] MEDS ORDERED: ACETAMINOPHEN 650 MG SUPPOSITORY RC PRN (16:30)
[2022-12-28] MEDS ORDERED: DOCUSATE SODIUM 100 MG CAP PO PRN (16:30)
[2022-12-28] MEDS: INSULIN HUMULIN R 100 UNIT/ML 3ML SQ SCH ×2 (16:30→21:55)
[2022-12-28] MEDS ORDERED: ONDANSETRON 4MG INJ IVP PRN (16:30)
[2022-12-28] MEDS ORDERED: LACTULOSE 20 GM/30 ML UDCUP PO PRN (16:30)
[2022-12-28 16:44] VITALS: BP 160/91; PULSE 69; RESP 18
[2022-12-28] MEDS ORDERED: LABETALOL 20MG SYG IV ONE ×2 (16:56→17:06)
[2022-12-28] MEDS ORDERED: COLCHICINE 0.6 MG TABLET PO SCH (17:30)
[2022-12-28] MEDS ORDERED: [UNRECOGNIZED DRUG - REMARK] MISC SCH (17:30)
[2022-12-28 19:00] VITALS: O2SAT 99
[2022-12-28 20:00] VITALS: BP 133/67; PULSE 78; RESP 20
[2022-12-28] MEDS: NAPROXEN 250 MG TAB PO SCH (20:01)
[2022-12-28] MEDS ORDERED: ACETAMINOPHEN 325 MG TAB PO STA (21:22)
[2022-12-29] VITALS (7 sets, daily range): BP systolic 151–168; BP diastolic 77–94; PULSE 66–77; RESP 16–20; O2SAT 97
[2022-12-29] MEDS ORDERED: FERS325 PO (03:10)
[2022-12-29] MEDS: CLONIDINE HCL 0.1 MG TABLET PO PRN ×2 (03:54→11:36)
[2022-12-29 04:43] LABS: HEMATOCRIT 35.4 % (42-54); MEAN CORPUSCULAR HEMOGLOBIN 31.4 pg (27.0-33.0); MEAN CORPUSCULAR HGB CONC 32.2 g/dL (32.0-36.0); MEAN CORPUSCULAR VOLUME 97.5 fL (79-99); RED BLOOD CELL COUNT(AUTO) 3.63 MIL/uL (4.50-6.20); RED CELL DISTRIBUTION WIDTH 13.9 % (11.0-15.5); WHITE BLOOD COUNT (AUTO) 5.7 K/uL (4.8-10.8)
[2022-12-29 04:59] LABS: CREATININE 5.9 mg/dL (0.5-1.5); MAGNESIUM 3.1 mg/dL (1.80-2.40); PHOSPHORUS 4.2 mg/dL (2.5-4.9); POTASSIUM 4.2 mmol/L (3.5-5.1)
[2022-12-29] MEDS: INSULIN HUMULIN R 100 UNIT/ML 3ML SQ SCH ×3 (06:26→16:30)
[2022-12-29] MEDS ORDERED: ENOXAPARIN SODIUM 30 MG/0.3 ML SQ SCH (09:00)
[2022-12-29] MEDS ORDERED: PANTOPRAZOLE 40 MG TAB DR PO SCH (09:00)
[2022-12-29] MEDS: NAPROXEN 250 MG TAB PO SCH (09:37)
== END 2022-12-29 17:30 | disposition home or self-care (01) ==
LOC: EDH 09:57 → EDHIP 16:05 → 2CH 16:46 → 4AH 17:35
PROVIDERS: ADMIT Internal Medicine Pulmonary Disease; ATTEND Internal Medicine Pulmonary Disease
DX: I13.2 Hypertensive heart and chronic kidney disease with heart failure and with stage 5 chronic kidney disease, or end stage renal disease (principal); E11.22 Type 2 diabetes mellitus with diabetic chronic kidney disease; I50.23 Acute on chronic systolic (congestive) heart failure; N18.6 End stage renal disease; I30.1 Infective pericarditis; I31.39 Other pericardial effusion (noninflammatory); E11.65 Type 2 diabetes mellitus with hyperglycemia; R06.00 Dyspnea, unspecified; R19.7 Diarrhea, unspecified; Z99.2 Dependence on renal dialysis
CPT/HCPCS: 96372 ×2; 99285; 82550; 83874; 84484; 80053; 83880; 85025; 82948 ×4; 36415 ×2; 71045; 93306; 93356; 93005; 83735; 84100; 80048; 85027; 86160 ×2; 86038; 86162; 86431; C1769; C1894; G0378 ×25; J3490; J1644; J1815; J1650; 86215; 86235; J2250; J3010

== ENCOUNTER → 2023-01-23 | Outpatient (CLI) | payer OTHER, MEDICARE ==
[~2023-01-23] MED LIST changes: -ACET-2459 PO; -CEPH500B PO; +FERS325 PO
== END | disposition home or self-care (01) ==
LOC: RAH 10:36
PROVIDERS: ATTEND Family Medicine
DX: I51.7 Cardiomegaly (principal); I30.9 Acute pericarditis, unspecified
CPT/HCPCS: 93306

== ENCOUNTER 2023-05-26 07:32 | Emergency (ER) | payer OTHER, MEDICARE ==
[~2023-05-26] VITALS: Ht 154.9 cm; Wt 80.7 kg
[~2023-05-26 07:32] MED LIST changes: +CIPR-279 PO; -FERS325 PO; +FOLI0.8T43 PO; +HYDR25TA67 PO; -ISOS30TA92 PO; -NIFE90TA65 PO; +PIOG15TA66 PO; +PRED20TA3 PO
[2023-05-26 07:33] VITALS: BP 141/78; PULSE 97; RESP 16
[2023-05-26 08:13] LABS: SARS-CoV-2, RNA, NAAT NEGATIVE SARS CoV-2 (NEGATIVE)
[2023-05-26 08:15] LABS: INFLUENZA TYPE A Negative For Type A (NEGATIVE); INFLUENZA TYPE B Negative For Type B (NEGATIVE)
[2023-05-26 08:16] LABS: BASOPHILS # (AUTO) 0.01 K/uL (0.00-0.20); BASOPHILS % (AUTO) 0.1 % (0.0-5.0); EOSINOPHILS # (AUTO) 0.11 K/uL (0.00-0.70); EOSINOPHILS % (AUTO) 1.4 % (0.0-8.0); HEMATOCRIT 33.3 % (42-54); IMMATURE GRANULOCYTE ABSOLUTE 0.04 K/uL (0-1); LYMPHOCYTES # (AUTO) 0.9 K/uL (1.0-4.8); LYMPHOCYTES % (AUTO) 11.8 % (21.0-51.0); MEAN CORPUSCULAR HEMOGLOBIN 29.8 pg (27.0-33.0); MEAN CORPUSCULAR HGB CONC 31.5 g/dL (32.0-36.0); MEAN CORPUSCULAR VOLUME 94.6 fL (79-99); MONOCYTES # (AUTO) 0.4 K/uL (0.1-1.0); NEUTROPHILS # (AUTO) 6.5 K/uL (1.8-7.7); NEUTROPHILS % (AUTO) 81.2 % (40.0-77.0); PLATELET COUNT (AUTO) 143 K/uL (130-400); RED BLOOD CELL COUNT(AUTO) 3.52 MIL/uL (4.50-6.20); RED CELL DISTRIBUTION WIDTH 16.4 % (11.0-15.5)
[2023-05-26 08:30] LABS: ALBUMIN 3.1 g/dL (3.5-5.0); BILIRUBIN,TOTAL 0.6 mg/dL (0.2-1.0); CREATININE 7.2 mg/dL (0.5-1.5); POTASSIUM 4.8 mmol/L (3.5-5.1); TOTAL PROTEIN, SERUM 6.6 g/dL (6.0-8.3)
== END 2023-05-26 10:48 | disposition home or self-care (01) ==
LOC: EDH 07:32
DX: R06.09 Other forms of dyspnea (principal); E87.70 Fluid overload, unspecified; I13.2 Hypertensive heart and chronic kidney disease with heart failure and with stage 5 chronic kidney disease, or end stage renal disease; E11.22 Type 2 diabetes mellitus with diabetic chronic kidney disease; N18.6 End stage renal disease; I50.9 Heart failure, unspecified; J40 Bronchitis, not specified as acute or chronic; Z99.2 Dependence on renal dialysis; Z79.52 Long term (current) use of systemic steroids; Z79.899 Other long term (current) drug therapy; Z20.822 Contact with and (suspected) exposure to COVID-19
CPT/HCPCS: 36415; 71045; 80053; 83605; 83880; 84484; 85025; 87040; 87635; 87804; 93005

== ENCOUNTER 2023-06-11 11:46 | Emergency (ER) | payer OTHER, MEDICARE ==
[~2023-06-11] VITALS: Ht 157.5 cm; Wt 83.5 kg
[2023-06-11 12:04] VITALS: O2SAT 99
[2023-06-11 12:16] LABS: BASOPHILS # (AUTO) 0.02 K/uL (0.00-0.20); BASOPHILS % (AUTO) 0.2 % (0.0-5.0); EOSINOPHILS # (AUTO) 0.07 K/uL (0.00-0.70); EOSINOPHILS % (AUTO) 0.7 % (0.0-8.0); HEMATOCRIT 34.2 % (42-54); LYMPHOCYTES # (AUTO) 1.2 K/uL (1.0-4.8); LYMPHOCYTES % (AUTO) 11.8 % (21.0-51.0); MEAN CORPUSCULAR HEMOGLOBIN 29.6 pg (27.0-33.0); MEAN CORPUSCULAR HGB CONC 31.6 g/dL (32.0-36.0); MEAN CORPUSCULAR VOLUME 93.7 fL (79-99); MONOCYTES # (AUTO) 0.6 K/uL (0.1-1.0); MONOCYTES % (AUTO) 5.9 % (3.0-13.0); NEUTROPHILS % (AUTO) 80.4 % (40.0-77.0); PLATELET COUNT (AUTO) 333 K/uL (130-400); RED BLOOD CELL COUNT(AUTO) 3.65 MIL/uL (4.50-6.20); RED CELL DISTRIBUTION WIDTH 15.1 % (11.0-15.5); WHITE BLOOD COUNT (AUTO) 9.9 K/uL (4.8-10.8)
[2023-06-11] MEDS: MORPHINE 2 MG SYG IVP ONE ×2 (12:18→14:12)
[2023-06-11] MEDS: ONDANSETRON 4MG TABLET PO ONE (12:18)
[2023-06-11 12:33] LABS: ALBUMIN 3.2 g/dL (3.5-5.0); BILIRUBIN,TOTAL 0.4 mg/dL (0.2-1.0); CREATININE 4.4 mg/dL (0.5-1.5); POTASSIUM 3.9 mmol/L (3.5-5.1); TOTAL PROTEIN, SERUM 6.9 g/dL (6.0-8.3)
[2023-06-11 14:20] VITALS: BP 181/83; PULSE 80; RESP 16
[2023-06-11] MEDS ORDERED: LEVO-70 PO (15:25)
[2023-06-11] MEDS ORDERED: HYDROCODONE/ACETAMINOPHEN 5/325 MG TAB PO ONE (16:00)
== END 2023-06-11 15:45 | disposition home or self-care (01) ==
LOC: EDH 11:46
DX: N50.3 Cyst of epididymis (principal); K57.30 Diverticulosis of large intestine without perforation or abscess without bleeding; I12.0 Hypertensive chronic kidney disease with stage 5 chronic kidney disease or end stage renal disease; E11.22 Type 2 diabetes mellitus with diabetic chronic kidney disease; N18.6 End stage renal disease; D63.1 Anemia in chronic kidney disease; Z99.2 Dependence on renal dialysis; Z79.52 Long term (current) use of systemic steroids; Z79.899 Other long term (current) drug therapy; E78.00 Pure hypercholesterolemia, unspecified
CPT/HCPCS: 99285; 74176; 96374; 80053; 85025; 36415; 76870; 96376; Q0162; J2270 ×2

== ENCOUNTER 2023-11-07 08:13 | Inpatient (IN) | payer OTHER, MEDICARE ==
[2023-11-07] VITALS (14 sets, daily range): BP systolic 114–180; BP diastolic 50–86; PULSE 75–88; RESP 14–21; O2SAT 98–99
[~2023-11-07] VITALS: Ht 154.9 cm; Wt 78.6 kg
[~2023-11-07 08:13] MED LIST changes: +LEVO-70 PO
[2023-11-07] MEDS ORDERED: HEPARIN 10,000 UNIT/10ML (1,000 UNIT/ML) VIAL ONE (08:16)
[2023-11-07] MEDS ORDERED: LIDOCAINE HCL 400MG/20ML VIAL ONE (08:16)
[2023-11-07] MEDS ORDERED: IOHEXOL 350 MG/ML 100ML INFUS..BTL IV ONE (08:16)
[2023-11-07] MEDS ORDERED: BIVALIRUDIN 250 MG/VIAL IV ONE (08:17)
[2023-11-07] MEDS ORDERED: DOPAMINE HCL 400 MG/D5%-WATER 0 ML IV ONE (08:21)
[2023-11-07] MEDS ORDERED: ATROPINE 1MG SYG IVP ONE (08:21)
[2023-11-07] MEDS ORDERED: NITROGLYCERIN 50MG/D5W 250ML 1 BOT ONE (08:22)
[2023-11-07] MEDS ORDERED: NICARDIPINE 25MG INJ IV ONE (08:23)
[2023-11-07 08:31] LABS: BASOPHILS # (AUTO) 0.01 K/uL (0.00-0.20); BASOPHILS % (AUTO) 0.1 % (0.0-5.0); EOSINOPHILS # (AUTO) 0.14 K/uL (0.00-0.70); EOSINOPHILS % (AUTO) 1.3 % (0.0-8.0); HEMATOCRIT 35.2 % (42-54); IMMATURE GRANULOCYTE ABSOLUTE 0.03 K/uL (0-1); LYMPHOCYTES # (AUTO) 1.7 K/uL (1.0-4.8); MEAN CORPUSCULAR HEMOGLOBIN 33.1 pg (27.0-33.0); MEAN CORPUSCULAR HGB CONC 33.8 g/dL (32.0-36.0); MEAN CORPUSCULAR VOLUME 97.8 fL (79-99); MONOCYTES # (AUTO) 0.7 K/uL (0.1-1.0); MONOCYTES % (AUTO) 6.6 % (3.0-13.0); NEUTROPHILS % (AUTO) 75.7 % (40.0-77.0); PLATELET COUNT (AUTO) 266 K/uL (130-400); RED CELL DISTRIBUTION WIDTH 13.6 % (11.0-15.5); WHITE BLOOD COUNT (AUTO) 10.5 K/uL (4.8-10.8)
[2023-11-07] MEDS: TICAGRELOR 90 MG TABLET PO SCH (08:32)
[2023-11-07] MEDS: HEPARIN 5,000 UNIT VIAL ONE (08:35)
[2023-11-07] MEDS: HEPARIN 5,000 UNIT VIAL IV SCH (08:36)
[2023-11-07 08:41] LABS: CREATININE 4.1 mg/dL (0.5-1.3); POTASSIUM 3.1 mmol/L (3.5-5.1)
[2023-11-07 08:42] LABS: INR 1.06 (0.85-1.15); PROTHROMBIN TIME 11.4 SEC (9.6-11.6)
[2023-11-07 08:43] LABS: PARTIAL THROMBOPLASTIN TIME 36.5 SEC (26.3-35.5)
[2023-11-07 08:48] LABS: ALBUMIN 3.6 g/dL (3.5-5.0); BILIRUBIN,TOTAL 0.6 mg/dL (0.2-1.0); MAGNESIUM 2.1 mg/dL (1.80-2.40); TOTAL PROTEIN, SERUM 7.8 g/dL (6.0-8.3)
[2023-11-07] MEDS ORDERED: FENTANYL CITRATE PF 50 MCG/1 ML 2ML VIAL ONE (08:54)
[2023-11-07] MEDS ORDERED: MIDAZOLAM HCL 1 MG/ML 2ML VIAL ONE ×2 (08:55→09:06)
[2023-11-07 08:56] LABS: B-TYPE NATRIURETIC PEPTIDE 594 pg/mL (0-100)
[2023-11-07] MEDS ORDERED: VERAPAMIL HCL 2.5 MG/ML VIAL ONE (09:08)
[2023-11-07] MEDS ORDERED: GLUCAGON 1MG KIT 1 MG ML IM PRN (09:30)
[2023-11-07] MEDS ORDERED: NITROGLYCERIN 0.4 MG SL TAB SL PRN (09:30)
[2023-11-07] MEDS ORDERED: LACTULOSE 20 GM/30 ML UDCUP PO PRN (09:30)
[2023-11-07] MEDS ORDERED: DEXTROSE 50%-WATER 50 ML DISP.SYRIN IV PRN (09:30)
[2023-11-07] MEDS ORDERED: DiphenhydrAMINE HCL 50 MG/ML VIAL IV PRN (09:30)
[2023-11-07] MEDS ORDERED: DOCUSATE SODIUM 100 MG CAP PO PRN (09:30)
[2023-11-07] MEDS ORDERED: POLYETHYLENE GLYCOL 3350 17 GM POWD.PACK PO PRN (09:30)
[2023-11-07] MEDS ORDERED: ACETAMINOPHEN 325 MG TAB PO PRN (09:30)
[2023-11-07] MEDS ORDERED: GUAIFENESIN SUGAR-FREE 100 MG/5 ML UDCUP PO PRN (09:30)
[2023-11-07] MEDS ORDERED: ONDANSETRON 4MG INJ IV PRN (09:30)
[2023-11-07] MEDS ORDERED: NIFE-78 PO (10:31)
[2023-11-07] MEDS: INSULIN HUMULIN R 100 UNIT/ML 3ML SQ SCH (11:30)
[2023-11-07] MEDS: HYDRALAZINE 25MG TABLET PO PRN (12:13)
[2023-11-07] MEDS: ACETAMINOPHEN 325 MG TAB PO PRN (12:58)
[2023-11-07] MEDS: COLCHICINE 0.6 MG TABLET PO SCH (18:52)
[2023-11-07] MEDS: ASPIRIN 325MG TAB PO SCH (18:52)
[2023-11-08] VITALS (15 sets, daily range): BP systolic 136–180; BP diastolic 50–98; PULSE 70–82; RESP 16–20; TEMP 97.7–98; O2SAT 100
[2023-11-08 04:01] LABS: BASOPHILS # (AUTO) 0.02 K/uL (0.00-0.20); BASOPHILS % (AUTO) 0.2 % (0.0-5.0); EOSINOPHILS # (AUTO) 0.14 K/uL (0.00-0.70); EOSINOPHILS % (AUTO) 1.2 % (0.0-8.0); HEMATOCRIT 33.4 % (42-54); IMMATURE GRANULOCYTE ABSOLUTE 0.05 K/uL (0-1); LYMPHOCYTES # (AUTO) 1.5 K/uL (1.0-4.8); LYMPHOCYTES % (AUTO) 13.7 % (21.0-51.0); MEAN CORPUSCULAR HEMOGLOBIN 32.5 pg (27.0-33.0); MEAN CORPUSCULAR HGB CONC 32.9 g/dL (32.0-36.0); MEAN CORPUSCULAR VOLUME 98.8 fL (79-99); MONOCYTES % (AUTO) 8.9 % (3.0-13.0); NEUTROPHILS # (AUTO) 8.5 K/uL (1.8-7.7); NEUTROPHILS % (AUTO) 75.6 % (40.0-77.0); PLATELET COUNT (AUTO) 257 K/uL (130-400); RED BLOOD CELL COUNT(AUTO) 3.38 MIL/uL (4.50-6.20); RED CELL DISTRIBUTION WIDTH 13.7 % (11.0-15.5); WHITE BLOOD COUNT (AUTO) 11.2 K/uL (4.8-10.8)
[2023-11-08 04:17] LABS: CREATININE 6.5 mg/dL (0.5-1.3); POTASSIUM 4.6 mmol/L (3.5-5.1)
[2023-11-08 04:31] LABS: B-TYPE NATRIURETIC PEPTIDE 514 pg/mL (0-100)
[2023-11-08 08:40] LABS: CHOLESTEROL 124 mg/dL (<200); HDL CHOLESTEROL 70 mg/dL (29-71); LDL DIRECT 51 mg/dL (0-99); TRIGLYCERIDES 61 mg/dL (30-200)
[2023-11-08] MEDS: FAMOTIDINE 20MG VIAL IV SCH (09:16)
[2023-11-08] MEDS: 0.9%NACL 1000ML 1,000 ML IV SCH (10:37)
[2023-11-08] MEDS ORDERED: ASPI-1026 PO (14:40)
[2023-11-08] MEDS ORDERED: ATOR40TA69 PO (14:40)
[2023-11-08] MEDS ORDERED: COLC0.6T73 PO (14:40)
[2023-11-08] MEDS ORDERED: ATORVASTATIN 40 MG TABLET PO SCH (21:00)
[2023-11-08 22:59] LABS: HEPATITIS B CORE AB TOTAL Non-Reactive (Nonreactive); HEPATITIS B SURFACE ANTIBODY Positive (Reactive); HEPATITIS B SURFACE ANTIGEN Non-Reactive (Nonreactive)
== END 2023-11-08 16:00 | disposition home or self-care (01) | DRG 280 ==
LOC: EDH 08:13 → EDHIP 09:04 → 2AH 10:17
PROVIDERS: ADMIT Internal Medicine Critical Care Medicine; ATTEND Internal Medicine Critical Care Medicine
PROC: 4A023N7 Measurement of Cardiac Sampling and Pressure, Left Heart, Percutaneous Approach (ICD-10-PCS; 2023-11-07)
PROC: B2111ZZ Fluoroscopy of Multiple Coronary Arteries using Low Osmolar Contrast (ICD-10-PCS; 2023-11-07)
PROC: 5A1D70Z Performance of Urinary Filtration, Intermittent, Less than 6 Hours Per Day (ICD-10-PCS; principal; 2023-11-08)
DX: I21.29 ST elevation (STEMI) myocardial infarction involving other sites (principal); N18.6 End stage renal disease; I12.0 Hypertensive chronic kidney disease with stage 5 chronic kidney disease or end stage renal disease; I31.39 Other pericardial effusion (noninflammatory); E78.00 Pure hypercholesterolemia, unspecified; E11.22 Type 2 diabetes mellitus with diabetic chronic kidney disease; Z99.2 Dependence on renal dialysis; Z79.899 Other long term (current) drug therapy
CPT/HCPCS: 36415; 71045; 80048; 80053; 80061; 82948; 83735; 83880; 84484; 85025; 85610; 85651; 85730; 86140; 86704; 86706; 87340; 90935; 93005; 93458; 99156; 99157; 99291; C1769; G0378; J0461; J0583; J1265; J1644; J1815; J2250; J3010; J3490; Q9967; A4649; C1894; Q9965

== ENCOUNTER → 2024-01-08 | Outpatient (CLI) | payer OTHER, MEDICARE ==
[~2024-01-08] MED LIST changes: +ASPI-1026 PO; +ATOR40TA69 PO; -CIPR-279 PO; +COLC0.6T73 PO; -HYDR25TA67 PO; -LEVO-70 PO; +NIFE-78 PO; -PRED20TA3 PO; -TAMS-1 PO
== END | disposition home or self-care (01) ==
LOC: SHCH 07:44
PROVIDERS: ATTEND Internal Medicine Cardiovascular Disease
DX: I31.39 Other pericardial effusion (noninflammatory) (principal)
CPT/HCPCS: 93306

== ENCOUNTER 2024-02-20 08:50 | Emergency (ER) | payer OTHER, MEDICARE ==
[~2024-02-20] VITALS: Ht 152.4 cm; Wt 82.6 kg
[2024-02-20 09:15] LABS: BASOPHILS # (AUTO) 0.02 K/uL (0.00-0.20); BASOPHILS % (AUTO) 0.4 % (0.0-5.0); EOSINOPHILS # (AUTO) 0.17 K/uL (0.00-0.70); HEMATOCRIT 32.6 % (42-54); IMMATURE GRANULOCYTE ABSOLUTE 0.03 K/uL (0-1); LYMPHOCYTES # (AUTO) 1.3 K/uL (1.0-4.8); LYMPHOCYTES % (AUTO) 23.6 % (21.0-51.0); MEAN CORPUSCULAR HEMOGLOBIN 32.6 pg (27.0-33.0); MEAN CORPUSCULAR VOLUME 95.6 fL (79-99); MONOCYTES # (AUTO) 0.5 K/uL (0.1-1.0); MONOCYTES % (AUTO) 8.2 % (3.0-13.0); NEUTROPHILS # (AUTO) 3.6 K/uL (1.8-7.7); NEUTROPHILS % (AUTO) 64.3 % (40.0-77.0); PLATELET COUNT (AUTO) 224 K/uL (130-400); RED BLOOD CELL COUNT(AUTO) 3.41 MIL/uL (4.50-6.20); RED CELL DISTRIBUTION WIDTH 12.8 % (11.0-15.5); WHITE BLOOD COUNT (AUTO) 5.6 K/uL (4.8-10.8)
[2024-02-20 09:23] LABS: CREATININE 3.6 mg/dL (0.5-1.3); MAGNESIUM 2.3 mg/dL (1.80-2.40); POTASSIUM 3.7 mmol/L (3.5-5.1)
[2024-02-20] MEDS: ketOROlac 30MG VIAL (30MG/ML) IM ONE (09:30)
[2024-02-20] MEDS ORDERED: DICL20GE TP (09:38)
--- NOTE | 2024-02-20 09:38 | ERN ---
General Chief Complaint: Lower Extremity Pain/Injury Stated Complaint: RIGHT LOWER EXTREMITY PAIN Time Seen by MD: 08:53 Source: patient History of Present Illness Initial Comments Patient is a 53-year-old male coming in to be evaluated for right lower extremity pain. Patient states that the pain has been ongoing for one month. Patient was evaluated by PCP and was pending an ultrasound to rule out a clot. Allergies: Coded Allergies: No Known Allergies (Unverified Allergy, Unknown, 06/11/21) Home Meds Active Scripts Aspirin (Aspirin) 325 Mg Tablet, 650 MG PO TID, #50 TAB 0 Refills [facility] 11/08/23 Colchicine (Colchicine) 0.6 Mg Tablet, 0.6 MG PO BID, #60 TAB 1 Refill Prov:[facility]cc[facility]KA[facility] 11/08/23 Atorvastatin Calcium (LIPITOR) 40 Mg Tablet, 40 MG PO HS, #30 TAB 1 Refill Prov:[facility] M[facility]oll[facility]KA[facility] 11/08/23 Reported Medications Nifedipine (Nifedipine ER) 30 Mg Tablet.er, 30 MG PO DAILY, TAB 11/07/23 Folic Acid/Vit Bcomp,C (Renal-Calderon Tablet) 0.8 Mg Tablet, 0.8 MG PO DAILY, TAB 03/10/23 Pioglitazone HCl (Pioglitazone HCl) 15 Mg Tablet, 15 MG PO AM, TAB 03/10/23 Past Medical History Past Medical History: Diabetes-Type II, High Cholesterol, Hypertension, AK, Cristhian al Failure, Other Medical History Other: CKD ON DIALYSIS Past Surgical History: Other, LAVA Surgical History Other: ABD SX Social History Social History: Negative, Other ROS Dictation CONSTITUTIONAL: No chills, no fever, no weakness, no diaphoresis, no malaise. HEAD/FACE: No signs of trauma. EENT: No eye pain, no blurred vision, no tearing, no double vision, no ear pain, no ear discharge, no nose pain, no nasal congestion, no throat pain, no throat swelling, no mouth pain. RESPIRATORY: No cough, no orthopnea, no SOB, no stridor, no wheezing. CARDIOVASCULAR: No chest pain, no edema, no palpitations, no syncope. GASTROINTESTINAL/ABDOMINAL: No abdominal pain, no constipation, no diarrhea, no nausea, no vomiting. GENITOURINARY: No abnormal discharge, no dysuria, no frequent urination, no hematuria. No complaints of pain in the genitals. MUSCULOSKELETAL: No back pain, no gout, no joint pain, no joint swelling, muscle pain, muscle stiffness, no neck pain. INTEGUMENTARY: No change in color, no change in hair/nails, no dryness, no lesion, no lumps, no rash. NEUROLOGICAL/PSYCH: No anxiety, not depressed, no emotional problem, no headache, no numbness, no pre-existing deficit, no history of seizures, no tremors, no weakness. HEMATOLOGIC/LYMPHATIC: Not anemic, no history of blood clots, no apparent bleeding, no bruising, glands not swollen. All Systems Negative, Except as Noted. Physical Exam Physical Exam Dictation VITAL SIGNS: Reviewed. GENERAL APPEARANCE: Alert, oriented x3, no acute distress, obese. HEAD AND FACE: Non-traumatic. EYES: PERRL, pink conjunctivas, eyelid no trauma, anterior chamber clear. EARS: Pinnas intact and no signs of trauma or erythema. Ear canals clear and no discharge. TMs no erythema. NOSE: No discharge, no bleeding. OROPHARYNX: Mouth normal, teeth no caries, tongue pink. Pharynx clear, no erythema. Tonsils no exudates, no abscesses noted. Mucous membrane moist. NECK: Supple, non-tender, no thyromegaly, no masses, no JVD, no bruits. BREAST: Deferred. CHEST: No tenderness, no crepitus, no paradoxical movement, no retractions. LUNGS: Clear, well-ventilated, symmetric, no rales, no wheezing, no rhonchi, no stridor, good breath sounds bilaterally. HEART: Regular rate, regular rhythm, no murmur, no gallops. VASCULAR: No peripheral edema. ABDOMEN: Soft, positive bowel sounds, nondistended, no guarding, nontender, no rebound, no masses no hepatomegaly, no splenomegaly, no Wynn's sign, no hernias. RECTAL: Deferred. GENITAL: Deferred. NEUROLOGICAL: Normal speech, gross motor function intact, gross sensory function intact. MUSCULOSKELETAL: Neck nontender, full range of motion, back nontender, full range of motion. EXTREMITIES: Nontender, full range of motion. Right lower extremity discomfort on palpation on the lateral aspect of the distal leg., seen is exacerbated with dorsiflexion and plantar flexion against resistance SKIN: Color pink, dry, no turgor, no rash, no lacerations, no abrasions, no contusions. LYMPHATICS: Deferred. Results Laboratory and Microbiology Lab and Micro Result Laboratory Tests Test 02/20/24 09:09 White Blood Count 5.6 K/uL (4.8-10.8) Red Blood Count 3.41 MIL/uL (4.50-6.20) L Hemoglobin 11.1 g/dL (14.0-18.0) L Hematocrit 32.6 % (42-54) L Mean Corpuscular Volume 95.6 fL (79-99) Mean Corpuscular Hemoglobin 32.6 pg (27.0-33.0) Mean Corpuscular Hemoglobin Concent 34.0 g/dL (32.0-36.0) Red Cell Distribution Width 12.8 % (11.0-15.5) Platelet Count 224 K/uL (130-400) Mean Platelet Volume 9.6 fL (7.5-10.5) Immature Granulocyte % (Auto) 0.5 % (0-1) Neutrophils (%) (Auto) 64.3 % (40.0-77.0) Lymphocytes (%) (Auto) 23.6 % (21.0-51.0) Monocytes (%) (Auto) 8.2 % (3.0-13.0) Eosinophils (%) (Auto) 3.0 % (0.0-8.0) Basophils (%) (Auto) 0.4 % (0.0-5.0) Neutrophils # (Auto) 3.6 K/uL (1.8-7.7) Lymphocytes # (Auto) 1.3 K/uL (1.0-4.8) Monocytes # (Auto) 0.5 K/uL (0.1-1.0) Eosinophils # (Auto) 0.17 K/uL (0.00-0.70) Basophils # (Auto) 0.02 K/uL (0.00-0.20) Absolute Immature Granulocyte (auto 0.03 K/uL (0-1) Nucleated Red Blood Cells 0.0 % (0.0-0.19) Sodium Level 137 mmol/L (136-145) Potassium Level 3.7 mmol/L (3.5-5.1) Chloride Level 96 mmol/L (101-111) L Carbon Dioxide Level 37 mmol/L (21-32) H Blood Urea Nitrogen 15 mg/dL (7-18) Creatinine 3.6 mg/dL (0.5-1.3) H Glomerular Filtration Rate Calc 19 mL/min (>90) Random Glucose 116 mg/dL (70-105) H Total Calcium 9.0 mg/dL (8.5-10.1) Magnesium Level 2.30 mg/dL (1.80-2.40) Labs Reviewed?: Yes EKG/XRAY/US/CT/MRI Ultrasound Comment Ultrasound venous lower extremity-NAD MDM MDM: Differential diagnosis: Right lower extremity the strain, tendon strain, tendinitis, end-stage renal disease Patient is a 53-year-old male coming in to be evaluated for right lower extremity lateral pain. On physical exam there is pain on gastrocnemius tendons and pain is exacerbated with plantar flexion and dorsiflexion. Ultrasound did not disclose acute findings. Laboratory workup negative for acute findings as well. Patient does have a history of end-stage renal disease on dialysis. Patient will be discharged with a diagnosis of tendonitis of the right lower extremity. ED Course Orders Procedure Category Date Status Time Us Venous Doppler US 02/20/24 Taken Unilateral 09:01 Ketorolac PHA 02/20/24 Complete Tromethamine 30mg/Ml 09:30 Cbc With Differential LAB 02/20/24 Complete 09:01 Basic Metabolic Panel LAB 02/20/24 Complete 09:01 Magnesium LAB 02/20/24 Complete 09:01 Current Medications Medications (Trade) Dose Ordered Sig/Robin Route PRN Reason Start Time Stop Time Status Last Admin Dose Admin Ketorolac Tromethamine (toRADol) 30 mg ONCE ONCE IM 02/20/24 09:30 02/20/24 09:31 DC Vital Signs Date Time Temp Pulse Resp B/P (MAP) Pulse Ox O2 Delivery O2 Flow Rate FiO2 02/20/24 08:51 98.2 87 20 143/75 99 Room Air DX & DISP Disposition: Discharge Departure Impression: Primary Impression: End stage renal disease Additional Impression: Tibialis tendinitis of right lower extremity Condition: Stable Scripts Diclofenac Sodium (Voltaren Arthritis Pain) 1 % Gel..gram. 20 GM TP BID, #1 TUBE Prov: TANISHA LORD MD 02/20/24 Additional Instructions: FOLLOW-UP WITH PRIMARY CARE PROVIDER IN 1 TO 2 DAYS. TAKE MEDICATIONS DIRECTED HERE IN THE EMERGENCY ROOM. OKAY TO CONTINUE HOME MEDICATIONS UNLESS OTHERWISE DISCUSSED DURING YOUR VISIT IN THE EMERGENCY ROOM TODAY. RETURN TO YOUR NEAREST EMERGENCY ROOM IF SYMPTOMS WORSEN OR IF THERE IS NO IMPROVEMENT. CALL 911 IF YOU NEED IMMEDIATE ASSISTANCE. TAKE TYLENOL [id number] NEEDED AND IF NO CONTRAINDICATIONS ARE PRESENT. INCREASE ORAL HYDRATION. A WOUND CULTURE OR URINE CULTURE WAS ORDERED HERE IN THE EMERGENCY ROOM DEPARTMENT PLEASE FOLLOW-UP WITH PRIMARY CARE PROVIDER AND ADVISE THEM TO GET REPEAT PORTS FROM OUR FACILITY. IF YOU HAD ANY GEOFFREY WRAP/SPLINTS THAT WERE APPLIED HERE, PLEASE DO NOT REMOVE THEM UNTIL YOU SEE YOUR PRIMARY CARE OR SPECIALTY. Referrals: Referrals: MYRON MCNAIR MD (PCP) LAMAR ARVIZU MD Time of Disposition: 09:37 TANISHA LORD MD Feb 20, 2024 09:38
[2024-02-20 10:01] VITALS: BP 137/69; PULSE 82; RESP 18; TEMP 98.2; O2SAT 100
--- NOTE | 2024-02-20 11:24 | HMCIMG ---
US VENOUS DOPPLER UNILATERAL HISTORY: Right lower extremity pain COMPARISON: None TECHNIQUE: Right lower extremity venous Doppler ultrasound study was performed. FINDINGS: The right common femoral, femoral, popliteal, and posterior tibial veins are visualized. Normal flow with augmentation and compressibilities are demonstrated. Right greater saphenous vein is patent. IMPRESSION: 1. No evidence of deep venous thrombosis is seen.
== END 2024-02-20 10:10 | disposition home or self-care (01) ==
LOC: EDH 08:50
DX: M76.821 Posterior tibial tendinitis, right leg (principal); I12.0 Hypertensive chronic kidney disease with stage 5 chronic kidney disease or end stage renal disease; E11.22 Type 2 diabetes mellitus with diabetic chronic kidney disease; N18.6 End stage renal disease; E78.00 Pure hypercholesterolemia, unspecified; M19.90 Unspecified osteoarthritis, unspecified site; Z79.82 Long term (current) use of aspirin; Z79.899 Other long term (current) drug therapy; Z99.2 Dependence on renal dialysis; Z98.890 Other specified postprocedural states
CPT/HCPCS: 99285; 93971; 83735; 80048; 85025; 36415; 96372; J1885

== ENCOUNTER → 2024-03-16 | Outpatient (CLI) | payer OTHER, MEDICARE ==
[~2024-03-16] MED LIST changes: +DICL20GE TP
--- NOTE | 2024-03-16 11:54 | HMCIMG ---
MR TIBFIB RIGHT WO HISTORY: Idiopathic pain in the right lower leg COMPARISON: None TECHNIQUE: MRI of the right tibia and fibula was performed utilizing multiple pulse sequences in axial, coronal and sagittal planes. Patient was not given contrast through intravenous route. FINDINGS: No abnormal signal intensity is seen of the visualized bony structure. No acute displaced fracture or dislocation is seen. No abnormal signal intensity of musculature. No evidence of soft tissue swelling is seen. Minimal degenerative changes are seen. IMPRESSION: 1. No acute finding.
== END | disposition home or self-care (01) ==
LOC: RAH 07:59
PROVIDERS: ATTEND Family Medicine
DX: M79.661 Pain in right lower leg (principal); I70.211 Atherosclerosis of native arteries of extremities with intermittent claudication, right leg
CPT/HCPCS: 73718

== ENCOUNTER 2024-04-11 13:08 | Emergency (ER) | payer OTHER, MEDICARE ==
[~2024-04-11] VITALS: Ht 165.1 cm; Wt 84.4 kg
[2024-04-11 14:27] LABS: BASOPHILS # (AUTO) 0.02 K/uL (0.00-0.20); BASOPHILS % (AUTO) 0.3 % (0.0-5.0); EOSINOPHILS # (AUTO) 0.18 K/uL (0.00-0.70); EOSINOPHILS % (AUTO) 2.7 % (0.0-8.0); HEMATOCRIT 34.8 % (42-54); IMMATURE GRANULOCYTE ABSOLUTE 0.02 K/uL (0-1); LYMPHOCYTES # (AUTO) 1.2 K/uL (1.0-4.8); LYMPHOCYTES % (AUTO) 17.4 % (21.0-51.0); MEAN CORPUSCULAR HEMOGLOBIN 32.4 pg (27.0-33.0); MEAN CORPUSCULAR HGB CONC 32.8 g/dL (32.0-36.0); MEAN CORPUSCULAR VOLUME 98.9 fL (79-99); MONOCYTES # (AUTO) 0.4 K/uL (0.1-1.0); MONOCYTES % (AUTO) 6.3 % (3.0-13.0); NEUTROPHILS # (AUTO) 4.9 K/uL (1.8-7.7); PLATELET COUNT (AUTO) 215 K/uL (130-400); RED BLOOD CELL COUNT(AUTO) 3.52 MIL/uL (4.50-6.20); RED CELL DISTRIBUTION WIDTH 12.8 % (11.0-15.5); WHITE BLOOD COUNT (AUTO) 6.7 K/uL (4.8-10.8)
[2024-04-11 14:35] LABS: SARS-CoV-2, RNA, NAAT NEGATIVE SARS CoV-2 (NEGATIVE)
[2024-04-11 14:42] LABS: INFLUENZA TYPE A Negative For Type A (NEGATIVE); INFLUENZA TYPE B Negative For Type B (NEGATIVE)
[2024-04-11 14:45] LABS: ALBUMIN 3.5 g/dL (3.5-5.0); BILIRUBIN,DIRECT 0.1 mg/dL (0.0-0.3); BILIRUBIN,TOTAL 0.7 mg/dL (0.2-1.0); POTASSIUM 4.1 mmol/L (3.5-5.1); TOTAL PROTEIN, SERUM 6.6 g/dL (6.0-8.3)
[2024-04-11 14:50] LABS: APPEARANCE,URINE CLEAR (CLEAR); BILIRUBIN,URINE NEGATIVE (NEGATIVE); COLOR,URINE YELLOW (YELLOW); GLUCOSE, URINE (UA) TRACE mg/dL (NEGATIVE); KETONES,URINE NEGATIVE (NEGATIVE); LEUKOCYTE ESTERASE ,URINE NEGATIVE Leu/uL (NEGATIVE); NITRATE,URINE NEGATIVE (NEGATIVE); OCCULT BLOOD,URINE SMALL (NEGATIVE); PH,URINE 6.5 (5.0-8.0); PROTEIN,URINE 600 mg/dL (NEGATIVE); UROBILINOGEN,URINE 0.2 mg/dL (0.2-1.0)
[2024-04-11 14:51] LABS: ADD UA MICROSCOPIC YES; AMPHET/METH SCREEN,URINE NEGATIVE (NEGATIVE); BACTERIA,URINE RARE /HPF (None Seen); BARBITURATE SCREEN, URINE NEGATIVE (NEGATIVE); BENZODIAZEPINES SCREEN,URINE NEGATIVE (NEGATIVE); CANNABINOID SCREEN,URINE NEGATIVE (NEGATIVE); COCAINE SCREEN,URINE NEGATIVE (NEGATIVE); MUCUS,URINE RARE LPF (None Seen); NON-SQUAMOUS EPITHELIAL CELL <1 /HPF (0-2); OPIATE SCREEN,URINE NEGATIVE (NEGATIVE); PHENCYCLIDINE SCREEN,URINE NEGATIVE (NEGATIVE); SQUAMOUS EPITHELIAL CELL,UR RARE /HPF (0-2); YEAST,URINE BUDDING FEW /HPF (None Seen)
--- NOTE | 2024-04-11 15:05 | ERN ---
General Chief Complaint: Generalized Body Aches Stated Complaint: FLU LIKE SYMPTOMS, DIARRHEA Time Seen by MD: 13:11 Source: patient, family History of Present Illness Initial Comments PATIENT IS A 53-YEAR-OLD GENTLEMAN WITH MULTIPLE COMPLAINTS. PATIENT STATES THAT HE HAS BEEN HAVING DIARRHEA FOR TWO WEEKS WELL FLU-LIKE SYMPTOMS WHICH INCLUDE COUGH RUNNY NOSE AND BODY ACHES. PATIENT HAS BEEN EVALUATED MULTIPLE TIMES WITH PCP. Allergies: Coded Allergies: No Known Allergies (Unverified Allergy, Unknown, 06/11/21) Home Meds Active Scripts Diclofenac Sodium (Voltaren Arthritis Pain) 1 % Gel..gram., 20 GM TP BID, #1 TUBE Prov:TANISHA LORD MD 02/20/24 Aspirin (Aspirin) 325 Mg Tablet, 650 MG PO TID, #50 TAB 0 Refills Prov:MICHELLE SALDANA [facility] 11/08/23 Colchicine (Colchicine) 0.6 Mg Tablet, 0.6 MG PO BID, #60 TAB 1 Refill Prov:MICHELLE SALDANA [facility] 11/08/23 Atorvastatin Calcium (LIPITOR) 40 Mg Tablet, 40 MG PO HS, #30 TAB 1 Refill Prov:MICHELLE SALDANA [facility] 11/08/23 Reported Medications Nifedipine (Nifedipine ER) 30 Mg Tablet.er, 30 MG PO DAILY, TAB 11/07/23 Folic Acid/Vit Bcomp,C (Renal-Calderon Tablet) 0.8 Mg Tablet, 0.8 MG PO DAILY, TAB 03/10/23 Pioglitazone HCl (Pioglitazone HCl) 15 Mg Tablet, 15 MG PO AM, TAB 03/10/23 Past Medical History Past Medical History: Diabetes-Type II, Hypertension, Renal Disese Medical History Other: ESRD-MWF Past Surgical History: Other Surgical History Other: PERICARDIO WINDOW Social History Social History: Negative, Other ROS Dictation CONSTITUTIONAL: NO CHILLS, FEVER, WEAKNESS, NO DIAPHORESIS, MALAISE. HEAD/FACE: NO SIGNS OF TRAUMA. EENT: NO EYE PAIN, NO BLURRED VISION, NO TEARING, NO DOUBLE VISION, NO EAR PAIN, NO EAR DISCHARGE, NO NOSE PAIN, NO NASAL CONGESTION, NO THROAT PAIN, NO THROAT SWELLING, NO MOUTH PAIN. RESPIRATORY: NO COUGH, NO ORTHOPNEA, NO SOB, NO STRIDOR, NO WHEEZING. CARDIOVASCULAR: NO CHEST PAIN, NO EDEMA, NO PALPITATIONS, NO SYNCOPE. GASTROINTESTINAL/ABDOMINAL: NO ABDOMINAL PAIN, NO CONSTIPATION, NO DIARRHEA, NO NAUSEA, NO VOMITING. GENITOURINARY: NO ABNORMAL DISCHARGE, NO DYSURIA, NO FREQUENT URINATION, NO HEMATURIA. NO COMPLAINTS OF PAIN IN THE GENITALS. MUSCULOSKELETAL: NO BACK PAIN, NO GOUT, NO JOINT PAIN, NO JOINT SWELLING, NO MUSCLE PAIN, NO MUSCLE STIFFNESS, NO NECK PAIN. INTEGUMENTARY: NO CHANGE IN COLOR, NO CHANGE IN HAIR/NAILS, NO DRYNESS, NO LESION, NO LUMPS, NO RASH. NEUROLOGICAL/PSYCH: NO ANXIETY, NOT DEPRESSED, NO EMOTIONAL PROBLEM, NO HEADACHE, NO NUMBNESS, NO PRE-EXISTING DEFICIT, NO HISTORY OF SEIZURES, NO TREMORS, NO WEAKNESS. HEMATOLOGIC/LYMPHATIC: NOT ANEMIC, NO HISTORY OF BLOOD CLOTS, NO APPARENT BLEEDING, NO BRUISING, GLANDS NOT SWOLLEN. ALL SYSTEMS NEGATIVE, EXCEPT NOTED. Physical Exam Physical Exam Dictation VITAL SIGNS: REVIEWED. GENERAL APPEARANCE: ALERT, ORIENTED X3, NO ACUTE DISTRESS, OBESE. HEAD AND FACE: NON-TRAUMATIC. EYES: PERRL, PINK CONJUNCTIVAS, EYELID NO TRAUMA, ANTERIOR CHAMBER CLEAR. EARS: PINNAS INTACT AND NO SIGNS OF TRAUMA OR ERYTHEMA. EAR CANALS CLEAR AND NO DISCHARGE. TMS NO ERYTHEMA. NOSE: NO DISCHARGE, NO BLEEDING. OROPHARYNX: MOUTH NORMAL, TEETH NO CARIES, TONGUE PINK. PHARYNX CLEAR, NO ERYTHEMA. TONSILS NO EXUDATES, NO ABSCESSES NOTED. MUCOUS MEMBRANE MOIST. NECK: SUPPLE, NON-TENDER, NO THYROMEGALY, NO MASSES, NO JVD, NO BRUITS. BREAST: DEFERRED. CHEST: NO TENDERNESS, NO CREPITUS, NO PARADOXICAL MOVEMENT, NO RETRACTIONS. LUNGS: CLEAR, WELL-VENTILATED, SYMMETRIC, NO RALES, NO WHEEZING, NO RHONCHI, NO STRIDOR, GOOD BREATH SOUNDS BILATERALLY. HEART: REGULAR RATE, REGULAR RHYTHM, NO MURMUR, NO GALLOPS. VASCULAR: NO PERIPHERAL EDEMA. ABDOMEN: SOFT, POSITIVE BOWEL SOUNDS, NONDISTENDED, NO GUARDING, NONTENDER, NO REBOUND, NO MASSES NO HEPATOMEGALY, NO SPLENOMEGALY, NO QUIÑONES'S SIGN, NO HERNIAS. RECTAL: DEFERRED. GENITAL: DEFERRED. NEUROLOGICAL: NORMAL SPEECH, GROSS MOTOR FUNCTION INTACT, GROSS SENSORY FUNCTION INTACT. MUSCULOSKELETAL: NECK NONTENDER, FULL RANGE OF MOTION, BACK NONTENDER, FULL RANGE OF MOTION. EXTREMITIES: NONTENDER, FULL RANGE OF MOTION. SKIN: COLOR PINK, DRY, NO TURGOR, NO RASH, NO LACERATIONS, NO ABRASIONS, NO CONTUSIONS. LYMPHATICS: DEFERRED. Results Laboratory and Microbiology Lab and Micro Result Laboratory Tests Test 04/11/24 13:55 04/11/24 14:03 04/11/24 14:15 Influenza Type A Antigen Negative For Type A Influenza Type B Antigen Negative For Type B SARS-CoV-2, RNA, NAAT NEGATIVE SARS CoV-2 White Blood Count 6.7 K/uL (4.8-10.8) Red Blood Count 3.52 MIL/uL (4.50-6.20) L Hemoglobin 11.4 g/dL (14.0-18.0) L Hematocrit 34.8 % (42-54) L Mean Corpuscular Volume 98.9 fL (79-99) Mean Corpuscular Hemoglobin 32.4 pg (27.0-33.0) Mean Corpuscular Hemoglobin Concent 32.8 g/dL (32.0-36.0) Red Cell Distribution Width 12.8 % (11.0-15.5) Platelet Count 215 K/uL (130-400) Mean Platelet Volume 10.0 fL (7.5-10.5) Immature Granulocyte % (Auto) 0.3 % (0-1) Neutrophils (%) (Auto) 73.0 % (40.0-77.0) Lymphocytes (%) (Auto) 17.4 % (21.0-51.0) L Monocytes (%) (Auto) 6.3 % (3.0-13.0) Eosinophils (%) (Auto) 2.7 % (0.0-8.0) Basophils (%) (Auto) 0.3 % (0.0-5.0) Neutrophils # (Auto) 4.9 K/uL (1.8-7.7) Lymphocytes # (Auto) 1.2 K/uL (1.0-4.8) Monocytes # (Auto) 0.4 K/uL (0.1-1.0) Eosinophils # (Auto) 0.18 K/uL (0.00-0.70) Basophils # (Auto) 0.02 K/uL (0.00-0.20) Absolute Immature Granulocyte (auto 0.02 K/uL (0-1) Nucleated Red Blood Cells 0.0 % (0.0-0.19) Sodium Level 141 mmol/L (136-145) Potassium Level 4.1 mmol/L (3.5-5.1) Chloride Level 102 mmol/L (101-111) Carbon Dioxide Level 33 mmol/L (21-32) H Blood Urea Nitrogen 29 mg/dL (7-18) H Creatinine 7.0 mg/dL (0.5-1.3) H Glomerular Filtration Rate Calc 9 mL/min (>90) Random Glucose 98 mg/dL (70-105) Total Calcium 8.6 mg/dL (8.5-10.1) Total Bilirubin 0.7 mg/dL (0.2-1.0) Direct Bilirubin 0.1 mg/dL (0.0-0.3) Aspartate Amino Transf (AST/SGOT) 18 U/L (10-37) Alanine Aminotransferase (ALT/SGPT) 20 U/L (12-78) Alkaline Phosphatase 144 U/L (50-136) H Total Creatine Kinase 56 U/L (21-232) Total Protein 6.6 g/dL (6.0-8.3) Albumin 3.5 g/dL (3.5-5.0) Lipase 49 U/L (16-77) Urine Color YELLOW (YELLOW) Urine Appearance CLEAR (CLEAR) Urine pH 6.5 (5.0-8.0) Urine Specific [place] 1.025 (1.001-1.031) Urine Protein 600 mg/dL (NEGATIVE) H Urine Glucose (UA) TRACE mg/dL (NEGATIVE) H Urine Ketones NEGATIVE mg/dL (NEGATIVE) Urine Occult Blood SMALL (NEGATIVE) H Urine Nitrate NEGATIVE (NEGATIVE) Urine Bilirubin NEGATIVE mg/dL (NEGATIVE) Urine Urobilinogen 0.2 mg/dL (0.2-1.0) Urine Leukocyte Esterase NEGATIVE Jose Antonio/uL Urine RBC 2-5 /HPF (0-1) H Urine WBC 6-10 /HPF (0-1) H Urine Squamous Epithelial Cells RARE /HPF (0-2) Urine Non-Squamous Epithelial Cells <1 /HPF (0-2) Urine Bacteria RARE /HPF (None Seen) Urine Hyaline Casts 2-5 /LPF (0-1 /LPF) H Urine Yeast FEW /HPF (None Seen) Urine Opiates Screen NEGATIVE (NEGATIVE) Urine Barbiturates Screen NEGATIVE (NEGATIVE) Urine Phencyclidine Screen NEGATIVE (NEGATIVE) Urine Amphetamines Screen NEGATIVE (NEGATIVE) Urine Benzodiazepines Screen NEGATIVE (NEGATIVE) Urine Cocaine Screen NEGATIVE (NEGATIVE) Urine Marijuana (THC) Screen NEGATIVE (NEGATIVE) Labs Reviewed?: Yes EKG/XRAY/US/CT/MRI X-RAY Comment [address] [place] [address] IMAGING REPORT Signed PATIENT: JOHN SCHILLING MR#: [id number] : 1970 SEX: M AGE: 53 LOCATION: [facility] ORDER [id number] STATUS: REG REPORT#: [id number] SERVICE [id number] REASON: fever ORDERING PHYSICIAN: TANISHA LORD MD PROCEDURE: CXR1VW - CHEST 1VW CHEST 1VW HISTORY: Fever COMPARISON: 11/07/2023 FINDINGS: A frontal projection of the chest was obtained. No acute pulmonary infiltrates is seen. The heart is borderline enlarged. Prominent interstitial markings are seen. Degenerative changes are seen. No evidence of aortic calcification is seen. IMPRESSION: 1. No acute pulmonary infiltrate is seen. DICTATED BY: JOHNNY DOSHI MD DATE: 04/11/24 154 ELECTRONICALLY SIGNED BY: JOHNNY DOSHI MD DATE: 04/11/24 155 [facility] MDM: DIFFERENTIAL DIAGNOSIS: END-STAGE RENAL DISEASE ON DIALYSIS, DEHYDRATION, GENERALIZED BODY WEAKNESS, ANOREXIA, PATIENT IS A 53-YEAR-OLD MALE COMING IN TO BE EVALUATED GENERALIZED BODY WEAKNESS FOR SOME TIME. LABORATORY WORKUP NEGATIVE FOR ACUTE FINDINGS. PATIENT DOES HAVE A HISTORY OF END-STAGE RENAL DISEASE IV FLUIDS WERE GIVEN PATIENT FELT BETTER. I ADVISED PATIENT APPROPRIATE FOLLOW UP WITH PCP IN 1-2 DAYS. ED Course Orders Procedure Category Date Status Time Influenza Type A & B, LAB 04/11/24 Complete Rapid 13:52 Covid Rna Naat LAB 04/11/24 Complete 13:52 Cbc With Differential LAB 04/11/24 Complete 13:52 Hepatic Function Panel LAB 04/11/24 Complete 13:52 Urinalysis Profile LAB 04/11/24 Complete 13:52 Lipase LAB 04/11/24 Complete 13:52 Basic Metabolic Panel LAB 04/11/24 Complete 13:52 Creatine Kinase, Total LAB 04/11/24 Complete 13:56 Rapid (Group A Strep) LAB 04/11/24 Logged 13:56 Drug Screen Urine LAB 04/11/24 Complete 13:56 Acetaminophen 500mg PHA 04/11/24 Complete Tab (Tylenol 500mg T 14:00 0.9% Nacl 500ml PHA 04/11/24 Complete Iv.Soln (Ns 500ml 14:00 Chest 1vw RAD 04/11/24 Resulted 13:58 Basic Metabolic Panel LAB 04/11/24 Complete 14:03 Culture Urine AUNDREA 04/11/24 In Process 15:02 Current Medications Medications (Trade) Dose Ordered Sig/Robin Route PRN Reason Start Time Stop Time Status Last Admin Dose Admin Acetaminophen (TYLenol 500MG TAB) 1,000 mg ONCE ONCE PO 04/11/24 14:00 04/11/24 14:01 DC 04/11/24 17:13 Sodium Chloride 500 ml @ 0 mls/hr ONCE ONCE IV 04/11/24 14:00 04/11/24 14:01 DC 04/11/24 17:13 Vital Signs Date Time Temp Pulse Resp B/P (MAP) Pulse Ox O2 Delivery O2 Flow Rate FiO2 04/11/24 13:44 98.2 74 18 202/91 97 Room Air 0 DX & DISP Disposition: Discharge Departure Impression: Primary Impression: ESRD (end stage renal disease) Additional Impression: Dehydration Condition: Stable Additional Instructions: FOLLOW-UP WITH PRIMARY CARE PROVIDER IN 1 TO 2 DAYS. TAKE MEDICATIONS DIRECTED HERE IN THE EMERGENCY ROOM. OKAY TO CONTINUE HOME MEDICATIONS UNLESS OTHERWISE DISCUSSED DURING YOUR VISIT IN THE EMERGENCY ROOM TODAY. RETURN TO YOUR NEAREST EMERGENCY ROOM IF SYMPTOMS WORSEN OR IF THERE IS NO IMPROVEMENT. CALL 911 IF YOU NEED IMMEDIATE ASSISTANCE. TAKE TYLENOL [id number] NEEDED AND IF NO CONTRAINDICATIONS ARE PRESENT. INCREASE ORAL HYDRATION. A WOUND CULTURE OR URINE CULTURE WAS ORDERED HERE IN THE EMERGENCY ROOM DEPARTMENT PLEASE FOLLOW-UP WITH PRIMARY CARE PROVIDER AND ADVISE THEM TO GET REPEAT PORTS FROM OUR FACILITY. IF YOU HAD ANY GEOFFREY WRAP/SPLINTS THAT WERE APPLIED HERE, PLEASE DO NOT REMOVE THEM UNTIL YOU SEE YOUR PRIMARY CARE OR SPECIALTY. REFERRALS: Referrals: MYRON MCNAIR MD (PCP) Time of Disposition: 17:55 TANISHA LORD MD Apr 11, 2024 15:05
--- NOTE | 2024-04-11 15:52 | HMCIMG ---
CHEST 1VW HISTORY: Fever COMPARISON: 11/07/2023 FINDINGS: A frontal projection of the chest was obtained. No acute pulmonary infiltrates is seen. The heart is borderline enlarged. Prominent interstitial markings are seen. Degenerative changes are seen. No evidence of aortic calcification is seen. IMPRESSION: 1. No acute pulmonary infiltrate is seen.
[2024-04-11] MEDS: acetaMINOPHEN 500 MG TABLET PO ONE (17:13)
[2024-04-11] MEDS: 0.9% NACL 500ML IV.SOLN 500 ML IV ONE (17:13)
[2024-04-11 18:02] VITALS: TEMP 98
[2024-04-11] MEDS: cloNIDine HCL 0.2 MG TABLET PO ONE (18:06)
[2024-04-11 19:16] VITALS: PULSE 66; O2SAT 95
[2024-04-11 19:30] VITALS: BP 174/82; RESP 18
== END 2024-04-11 19:37 | disposition home or self-care (01) ==
LOC: EDH 13:08
DX: I12.0 Hypertensive chronic kidney disease with stage 5 chronic kidney disease or end stage renal disease (principal); E11.22 Type 2 diabetes mellitus with diabetic chronic kidney disease; N18.6 End stage renal disease; Z99.2 Dependence on renal dialysis; E86.0 Dehydration; Z79.1 Long term (current) use of non-steroidal anti-inflammatories (NSAID); Z79.82 Long term (current) use of aspirin; Z79.899 Other long term (current) drug therapy; Z20.822 Contact with and (suspected) exposure to COVID-19
CPT/HCPCS: 99285; 71045; 87635; 82550; 80076; 80048; 80305; 83690; 85025; 87086; 87804 ×2; 36415; 81001; J7040

== ENCOUNTER → 2024-06-18 | Outpatient (CLI) | payer OTHER, MEDICARE | END | disposition home or self-care (01) | LOC: SHCH 13:30 | PROVIDERS: ATTEND Internal Medicine Cardiovascular Disease | DX: I87.2 Venous insufficiency (chronic) (peripheral) (principal); I87.1 Compression of vein; I70.203 Unspecified atherosclerosis of native arteries of extremities, bilateral legs | CPT/HCPCS: 93925; 93970 ==

== ENCOUNTER → 2024-08-12 | Outpatient (CLI) | payer OTHER, MEDICAID ==
[2024-08-12 08:21] LABS: BASOPHILS # (AUTO) 0.01 K/uL (0.00-0.20); BASOPHILS % (AUTO) 0.2 % (0.0-5.0); EOSINOPHILS # (AUTO) 0.11 K/uL (0.00-0.70); EOSINOPHILS % (AUTO) 1.8 % (0.0-8.0); IMMATURE GRANULOCYTE ABSOLUTE 0.04 K/uL (0-1); LYMPHOCYTES # (AUTO) 1.1 K/uL (1.0-4.8); LYMPHOCYTES % (AUTO) 16.9 % (21.0-51.0); MEAN CORPUSCULAR HEMOGLOBIN 31.5 pg (27.0-33.0); MEAN CORPUSCULAR HGB CONC 32.9 g/dL (32.0-36.0); MEAN CORPUSCULAR VOLUME 95.9 fL (79-99); MONOCYTES # (AUTO) 0.5 K/uL (0.1-1.0); NEUTROPHILS # (AUTO) 4.6 K/uL (1.8-7.7); NEUTROPHILS % (AUTO) 72.5 % (40.0-77.0); PLATELET COUNT (AUTO) 233 K/uL (130-400); RED BLOOD CELL COUNT(AUTO) 3.65 MIL/uL (4.50-6.20); RED CELL DISTRIBUTION WIDTH 13.5 % (11.0-15.5); WHITE BLOOD COUNT (AUTO) 6.3 K/uL (4.8-10.8)
[2024-08-12 08:32] LABS: CREATININE 6.8 mg/dL (0.5-1.3); POTASSIUM 5.2 mmol/L (3.5-5.1)
[2024-08-12 08:37] LABS: INR 1.03 (0.85-1.15); PROTHROMBIN TIME 10.9 SEC (9.6-11.6)
[2024-08-12 08:38] LABS: PARTIAL THROMBOPLASTIN TIME 27.7 SEC (26.3-35.5)
== END | disposition home or self-care (01) ==
LOC: LAB 07:46
PROVIDERS: ATTEND Internal Medicine Cardiovascular Disease
DX: I87.1 Compression of vein (principal); I87.2 Venous insufficiency (chronic) (peripheral); Z51.81 Encounter for therapeutic drug level monitoring
CPT/HCPCS: 36415; 80048; 85025; 85610; 85730

== ENCOUNTER 2024-10-24 17:16 | Emergency (ER) | payer OTHER, MEDICARE ==
[~2024-10-24] VITALS: Ht 157.5 cm; Wt 80.7 kg
--- NOTE | 2024-10-24 17:33 | ERN ---
ED Note History of Present Illness Stated Complaint: BODYACHES, COVID + Chief Complaint: Generalized Body Aches Time Seen by MD: 17:18 Time Seen by Midlevel: 17:18 Dictation: The patient is a 54-year-old male with a history of hypertension, diabetes, ESRD on dialysis, last dialysis was who presents to the emergency department with complaints of body aches, productive cough, weakness, loss of appetite, nausea, nonbloody vomiting, nonbloody diarrhea for one week. Patient reports that he tested positive for COVID three days ago. Reports completion of Paxlovid. Patient denies any abdominal pain, denies any chest pain. Allergies: Coded Allergies: No Known Allergies (Unverified Allergy, Unknown, 06/11/21) Home Meds Active Scripts Diclofenac Sodium (Voltaren Arthritis Pain) 1 % Gel..gram., 20 GM TP BID, #1 TUBE Prov:TANISHA LORD MD 02/20/24 Aspirin (Aspirin) 325 Mg Tablet, 650 MG PO TID, #50 TAB 0 Refills Prov:MICHELLE SALDANA [facility] 11/08/23 Colchicine (Colchicine) 0.6 Mg Tablet, 0.6 MG PO BID, #60 TAB 1 Refill Prov:MICHELLE SALDANA [facility] 11/08/23 Atorvastatin Calcium (LIPITOR) 40 Mg Tablet, 40 MG PO HS, #30 TAB 1 Refill Prov:MICHELLE SALDANA [facility] 11/08/23 Reported Medications Nifedipine (Nifedipine ER) 30 Mg Tablet.er, 30 MG PO DAILY, TAB 11/07/23 Folic Acid/Vit Bcomp,C (Renal-Calderon Tablet) 0.8 Mg Tablet, 0.8 MG PO DAILY, TAB 03/10/23 Pioglitazone HCl (Pioglitazone HCl) 15 Mg Tablet, 15 MG PO AM, TAB 03/10/23 Past Medical History Past Medical History: Diabetes-Type II, Hypertension, Renal Disese, Renal Failure Additional Past Medical Hx: ESRD-MWF Surgical History: Other Surgical History Other: PERICARDIO WINDOW Social History: Negative, Other RN Note Reviewed/Agreed w/PFSH: Yes Review of System Dictation Constitutional: Negative for fever,chills, and weight loss Eyes: Negative for injury, pain,redness, and discharge ENT: Negative for injury,pain or swelling Cardiovascular: Negative for chest pain, palpitations, and edema Respiratory: Negative for shortness of breath, cough, and wheezing, Abdomen/GI: Negative for abdominal pain, constipation positive for nausea, vomiting, diarrhea Back: Negative for injury and pain : Negative for injury, bleeding and discharge MS/Extremity: Negative for injury and deformity Skin: Negative for rash, and discoloration Neuro: Negative for headache, , numbness, tingling, and seizure , positive for generalized weakness Psych: Negative for suicide ideation, homicidal ideation, and hallucinations Initial Vital Sign VS Vital Signs Date Time Temp Pulse Resp B/P (MAP) Pulse Ox O2 Delivery O2 Flow Rate FiO2 10/24/24 17:17 97.9 89 16 100/47 99 Room Air 0 10/24/24 17:27 21 Physical Exam Dictation Vital Signs reviewed General Appearance: Alert, oriented x 3, no acute distress, well developed, nourished. Head and Face: non-traumatic. Eyes: PERRL, pink conjunctivas, eyelid no trauma, anterior chamber with arcus senilis. Ears: Pinnas intact and no signs of trauma or erythema ear canals clear and no discharge TM no erythema Nose: No discharge, no bleeding. Oropharynx: Mouth normal, tongue pink. pharynx clear,no erythema, tonsils no exudates, no abscesses noted, mucous membrane moist Neck: Supple, non-tender, no thyromegaly, no masses, no JVD, no bruits Breast:Deferred Chest:No tenderness, no crepitus, no paradoxical movement, no retractions Lungs:Clear, well-ventilated, symmetric, no rales, no wheezing, no rhonchi, no stridor, good breath sounds bilaterally Heart: Regular rate, regular rhythm, no murmur, no gallops Vascular: no peripheral edema, Abdomen: Soft, positive bowel sounds, nondistended, no guarding, nontender, no rebound, no masses no hepatomegaly, no splenomegaly, no Wynn's sign, no hernias. Rectal: Deferred Genital: Deferred Neurological: Normal speech, motor function intact, sensory function intact Musculoskeletal: Neck nontender, full range of motion, back nontender, full range of motion, Extremities: nontender, full range of motion Skin: Color pink, dry, no turgor, no rash, no lacerations, no abrasions, no contusions. Lymphatic: Deferred Results (Laboratory/Radiology) Laboratory/Radiology Laboratory Tests Test 10/24/24 17:50 White Blood Count 8.1 K/uL (4.8-10.8) Red Blood Count 3.65 MIL/uL (4.50-6.20) L Hemoglobin 11.6 g/dL (14.0-18.0) L Hematocrit 33.6 % (42-54) L Mean Corpuscular Volume 92.1 fL (79-99) Mean Corpuscular Hemoglobin 31.8 pg (27.0-33.0) Mean Corpuscular Hemoglobin Concent 34.5 g/dL (32.0-36.0) Red Cell Distribution Width 12.0 % (11.0-15.5) Platelet Count 271 K/uL (130-400) Mean Platelet Volume 9.6 fL (7.5-10.5) Immature Granulocyte % (Auto) 0.5 % (0-1) Neutrophils (%) (Auto) 78.9 % (40.0-77.0) H Lymphocytes (%) (Auto) 13.3 % (21.0-51.0) L Monocytes (%) (Auto) 5.5 % (3.0-13.0) Eosinophils (%) (Auto) 1.6 % (0.0-8.0) Basophils (%) (Auto) 0.2 % (0.0-5.0) Neutrophils # (Auto) 6.4 K/uL (1.8-7.7) Lymphocytes # (Auto) 1.1 K/uL (1.0-4.8) Monocytes # (Auto) 0.4 K/uL (0.1-1.0) Eosinophils # (Auto) 0.13 K/uL (0.00-0.70) Basophils # (Auto) 0.02 K/uL (0.00-0.20) Absolute Immature Granulocyte (auto 0.04 K/uL (0-1) Nucleated Red Blood Cells 0.0 % (0.0-0.19) Sodium Level 137 mmol/L (136-145) Potassium Level 3.6 mmol/L (3.5-5.1) Chloride Level 96 mmol/L (101-111) L Carbon Dioxide Level 24 mmol/L (21-32) Blood Urea Nitrogen 63 mg/dL (7-18) H Creatinine 14.7 mg/dL (0.5-1.3) *H Glomerular Filtration Rate Calc 4 mL/min (>90) Random Glucose 153 mg/dL (70-105) H Total Calcium 7.3 mg/dL (8.5-10.1) L Total Creatine Kinase 154 U/L (21-232) # Troponin I High Sensitivity 37 ng/L (4-75) REASON: cough ORDERING PHYSICIAN: 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 TECHNIQUE Frontal view chest. FINDINGS Lines and tubes: None Lungs: Clear. Pleura: Unremarkable. No effusion or pneumothorax. Cardiomediastinal Silhouette: Unremarkable. Bones: Normal for age. Soft Tissues: Normal. IMPRESSION No acute cardiopulmonary findings. /[facility] Reviewed?: Yes EKG: (+) rhythm (Sinus rhythm) EKG Comment: Date:10/24/2024 Time:1742 Ventricular rate:85 VT interval:149 QRS duration:94 QT/QTc:422/503 EKG interpretation: Sinus rhythm, prolonged QT Reviewed by ED Attending no STEMI ED Course ED Course Orders Procedure Category Date Status Time Cbc With Differential LAB 10/24/24 Complete 17:29 Troponin I High LAB 10/24/24 Complete Sensitivity 17:29 Urinalysis Profile LAB 10/24/24 Logged 17:29 12 Lead Ekg Tracing- EKG 10/24/24 Complete Technical 17:29 Creatine Kinase, Total LAB 10/24/24 Complete 17:29 Chest 1vw RAD 10/24/24 Resulted 17:29 Basic Metabolic Panel LAB 10/24/24 Complete 17:29 Ondansetron 4mg Inj PHA 10/24/24 Complete (Zofran 4mg Inj) 17:30 Ondansetron 4mg Inj PHA 10/24/24 In Process (Zofran 4mg Inj) 18:00 Calcium Gluc 1gm PHA 10/24/24 In Process (Calcium Gluc 1gm 18:00 Ondansetron 4mg Inj PHA 10/24/24 In Process (Zofran 4mg Inj) 18:00 Current Medications Medications (Trade) Dose Ordered Sig/Robin Route PRN Reason Start Time Stop Time Status Last Admin Dose Admin Calcium Gluconate 1 gm/Sodium Chloride 110 ml @ 110 mls/hr ONCE IV 10/24/24 18:00 10/24/24 23:59 10/24/24 18:27 Ondansetron HCl (zoFRAN 4MG INJ) 4 mg ONCE IVP 10/24/24 18:00 10/24/24 20:00 10/24/24 18:07 Ondansetron HCl (zoFRAN 4MG INJ) 4 mg ONCE IVP 10/24/24 18:00 10/24/24 23:59 Ondansetron HCl (zoFRAN 4MG INJ) 4 mg ONCE ONCE IVP 10/24/24 17:30 10/24/24 17:47 DC Vital Signs Date Time Temp Pulse Resp B/P (MAP) Pulse Ox O2 Delivery O2 Flow Rate FiO2 10/24/24 19:20 98.2 84 16 127/54 99 Room Air* 0 21 10/24/24 17:27 98.1 89 16 113/61 98 Room Air* 0 10/24/24 17:17 97.9 89 16 100/47 99 Room Air 0 Medical Decision Making MDM The patient is a 54-year-old male with a history of hypertension, diabetes, ESRD on dialysis, last dialysis was who presents to the emergency department with complaints of body aches, productive cough, weakness, loss of appetite, nausea, nonbloody vomiting, nonbloody diarrhea for one week. Patient reports that he tested positive for COVID three days ago. Reports completion of Paxlovid. Patient denies any abdominal pain, denies any chest pain. CBC showed no leukocytosis, mild normocytic anemia, chemistry, showed hypochlo remia, hypocalcemia, glucose of 153, normal CK level, negative troponin, chest x-ray showed no acute pathology. Discussed labs and imaging with the patient. At this time patient states he feels good and would like to be discharged. States he will go to dialysis in the morning. On physical exam patient is in no acute distress, not hypoxemia, stable vital signs. Patient will be discharged to follow up with PCP. Differential diagnosis: Gastroenteritis, URI, dehydration, electrolyte imbalance, pneumonia Need for hospitalization: Patient does not meet criteria for hospitalization. There are no social concerns with this patient. DX & DISP Disposition: Discharge Departure Impression: Primary Impression: Viral gastroenteritis Additional Impression: ESRD on dialysis Condition: Stable Additional Instructions: Please follow up with your primary doctor in 1-2 days. Make sure you do not missed her dialysis tomorrow. If you feel worse or symptoms worsen please return to ER. FOLLOW-UP WITH PRIMARY CARE PROVIDER IN 1 TO 2 DAYS. TAKE MEDICATIONS DIRECTED HERE IN THE EMERGENCY ROOM. OKAY TO CONTINUE HOME MEDICATIONS UNLESS OTHERWISE DISCUSSED DURING YOUR VISIT IN THE EMERGENCY ROOM TODAY. RETURN TO YOUR NEAREST EMERGENCY ROOM IF SYMPTOMS WORSEN OR IF THERE IS NO IMPROVEMENT. CALL 911 IF YOU NEED IMMEDIATE ASSISTANCE. TAKE TYLENOL [id number] NEE DED AND IF NO CONTRAINDICATIONS ARE PRESENT. INCREASE ORAL HYDRATION. A WOUND CULTURE OR URINE CULTURE WAS ORDERED HERE IN THE EMERGENCY ROOM DEPARTMENT PLEASE FOLLOW-UP WITH PRIMARY CARE PROVIDER AND ADVISE THEM TO GET REPEAT PORTS FROM OUR FACILITY. IF YOU HAD ANY GEOFFREY WRAP/SPLINTS THAT WERE APPLIED HERE, PLEASE DO NOT REMOVE THEM UNTIL YOU SEE YOUR PRIMARY CARE OR SPECIALTY. Referrals: MYRON MCNAIR MD (PCP) Time of Disposition: 19:40 I have reviewed the case, and I agree with, Diagnosis and Plan FABIENNE THOMSON Oct 24, 2024 17:32
--- NOTE | 2024-10-24 17:46 | EKG ---
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
[2024-10-24 18:00] LABS: IMMATURE GRANULOCYTE ABSOLUTE 0.04 K/uL (0-1); NUCLEATED RED BLOOD CELLS 0.0 % (0.0-0.19); PLATELET COUNT (AUTO) 271 K/uL (130-400); RED BLOOD CELL COUNT(AUTO) 3.65 MIL/uL (4.50-6.20); RED CELL DISTRIBUTION WIDTH 12.0 % (11.0-15.5); WHITE BLOOD COUNT (AUTO) 8.1 K/uL (4.8-10.8)
--- NOTE | 2024-10-24 18:05 | HMCIMG ---
CLINICAL INFORMATION Cough COMPARISON None. TECHNIQUE Frontal view chest. FINDINGS Lines and tubes: None Lungs: Clear. Pleura: Unremarkable. No effusion or pneumothorax. Cardiomediastinal Silhouette: Unremarkable. Bones: Normal for age. Soft Tissues: Normal. IMPRESSION No acute cardiopulmonary findings. /[place]
[2024-10-24 18:17] LABS: CREATINE KINASE, TOTAL 154.0 U/L (21-232); GLOMERULAR FILTR. RATE CALC 4.0 mL/min (>90); GLUCOSE,RANDOM 153.0 mg/dL (70-105); SODIUM SERUM 137.0 mmol/L (136-145); UREA NITROGEN, BLOOD 63.0 mg/dL (7-18)
[2024-10-24 18:19] LABS: CREATININE 14.7 mg/dL (0.5-1.3)
[2024-10-24] MEDS: CALCIUM GLUC 1GM 1 GM in 0.9%NACL 100ML 100 ML IV SCH (18:27)
[2024-10-24 19:20] VITALS: BP 127/54; PULSE 84; RESP 16; TEMP 98.3; O2SAT 99
== END 2024-10-24 20:00 | disposition home or self-care (01) ==
LOC: EDH 17:16
DX: A08.4 Viral intestinal infection, unspecified (principal); I12.0 Hypertensive chronic kidney disease with stage 5 chronic kidney disease or end stage renal disease; E11.22 Type 2 diabetes mellitus with diabetic chronic kidney disease; N18.6 End stage renal disease; Z79.1 Long term (current) use of non-steroidal anti-inflammatories (NSAID); Z79.82 Long term (current) use of aspirin; Z79.899 Other long term (current) drug therapy; Z99.2 Dependence on renal dialysis
CPT/HCPCS: 99285; 96365; 71045; 96375; 82550; 84484; 80048; 85025; 36415; 93005; J0612; J2405